=== PATIENT | female | born 1970 | race Caucasian/White ===

== ENCOUNTER 2016-09-15 19:16 | Inpatient (IN) | payer MEDICAID ==
[~2016-09-15] VITALS: Ht 160 cm; Wt 121.6 kg
[2016-09-15 19:16] VITALS: BP 172/79; PULSE 90; RESP 16; TEMP 99.1; O2SAT 94
[~2016-09-15 19:16] MED LIST: ALBMDI INH; ASPI325T2 PO; BENA20TA2 PO; BENZ100C67 PO; FERR-57 PO; GABA-531 PO; INSNLG7030 SUBCUT; SUCR1ORA2 PO
--- NOTE | 2016-09-15 19:20 | NUR ---
Patient to ER bed 7 to gown for evaluation. Side rails up. Report given to Annel LAM.
--- NOTE | 2016-09-15 19:30 | NUR ---
Patient brought to ER by S ambulance. Patient C/O 12/04 headache and "i cant move, my legs hurt" 09/03. Patient is homeless, states that she lives in her car and 1.5-2 months ago had a DVT and since then her legs swell up and she can't walk. Patient is soiled of urine and feces, bilateral lower extremities swelling and pitting edema +3 from thighs to toes. Entire body has multiple pin prick bites, patient states "from bed bugs" Patient is AAOx3, unlabored breathing, no acute distress.
--- NOTE | 2016-09-15 19:56 | NUR ---
Patient is incontinent of feces and urine. Patient cleaned, bedding, linnen changed, clean gown on.
--- NOTE | 2016-09-15 20:03 | NUR ---
ER MD Moctezuma at bedside for evaluation
--- NOTE | 2016-09-15 20:10 | NUR ---
Patient has bed bugs on person and crawling on belongings. Patient states "i have been dealing with this for a long time and can't get rid of them"
[2016-09-15 20:57] LABS: HEMATOCRIT 31.6 % (36-48); HEMOGLOBIN 10.3 g/dL (12.0-16.0); MEAN CORPUSCULAR HEMOGLOBIN 27 pg (27-31); MEAN CORPUSCULAR HGB CONC 33 % (32-36); MEAN CORPUSCULAR VOLUME 84 fL (79.0-98.0); PLATELET COUNT (AUTO) 371 K/uL (130-430); RED BLOOD CELL COUNT(AUTO) 3.78 MIL/uL (4.2-6.2); RED CELL DISTRIBUTION WIDTH 14.3 % (9.0-15.0); WHITE BLOOD COUNT (AUTO) 8.2 K/uL (4.8-10.8)
[2016-09-15 21:15] LABS: CALCIUM 8.1 mg/dL (8.4-11.0); CHLORIDE 105 mmol/L (98-107); CREATININE 1.13 mg/dL (0.55-1.30); GLUCOSE 150 mg/dL (70-99); SODIUM SERUM 139 mmol/L (136-145); UREA NITROGEN, BLOOD 17 mg/dL (8-21)
--- NOTE | 2016-09-15 21:15 | NUR ---
# 16 FR Escamilla catheter with use of sterile technique. Immediate return of 200 cc clowdy urine noted. Bedside drainage bag placed below level of bladder. Urine sample collected and sent to lab. Pt tolerated procedure well. Patient unable to toilet self.
[2016-09-15 21:20] LABS: ANION GAP < 3 (5-15); GFR AFRICAN AMERICAN 67 mL/min (>90); POTASSIUM 2.8 mmol/L (3.5-5.1)
[2016-09-15] MEDS ORDERED: POTASSIUM CHLORIDE 20 MEQ TAB.PRT.SR PO ONE (21:30)
[2016-09-15] MEDS ORDERED: KCL 20 mEq in 100 mL (PREMIX) 100 ML IV ONE (21:30)
[2016-09-15 21:31] LABS: INR 0.9 (0.8-1.2); PROTHROMBIN TIME 10.1 SECS (9.5-12.5)
[2016-09-15 21:36] LABS: ATYPICAL LYMPHOCYTES % 0 % (0-0); BAND % (MANUAL) 0 % (0-6); BASOPHILS % (MANUAL) 0 % (0-2); EOSINOPHILS % (MANUAL) 1 % (0-7); LYMPHOCYTES % (MANUAL) 14 % (20-46); MONOCYTES % (MANUAL) 3 % (0-11)
[2016-09-15] MEDS ORDERED: CLON0.3T PO (21:43)
[2016-09-15] MEDS ORDERED: PRED10TA PO (21:44)
[2016-09-15] MEDS ORDERED: FAMO20TA8 PO (21:45)
[2016-09-15] MEDS ORDERED: POTA10CA68 PO (21:45)
[2016-09-15] MEDS ORDERED: LOPE2CAP PO (21:46)
[2016-09-15] MEDS ORDERED: CIPR-172 PO (21:46)
[2016-09-15] MEDS ORDERED: FURO-149 PO (21:46)
[2016-09-15] MEDS ORDERED: VALS160T2 PO (21:47)
[2016-09-15] MEDS ORDERED: INSNLG7030 SUBCUT (21:48)
[2016-09-15] MEDS ORDERED: IPRA4AER INH (21:49)
--- NOTE | 2016-09-15 21:50 | NUR ---
Medication reconciliation completed with information provided by patient/med bottles. Any prior medication reconciliation on file was reviewed and corrected.
[2016-09-15 22:00] LABS: ALANINE AMINOTRANSFERASE 15 U/L (12-78); ASPARTATE AMINOTRANSFERASE 21 U/L (10-37); TOTAL BILIRUBIN 0.1 mg/dL (0.0-1.0)
[2016-09-15 22:01] LABS: ALBUMIN 1.2 g/dL (3.4-4.8); LIPASE 78 U/L (73-393); TOTAL PROTEIN, SERUM 5.2 g/dL (6.4-8.3)
--- NOTE | 2016-09-15 22:01 | NUR ---
Patients belongings (blue back pack and medications) placed in big belongings bag, double-bagged. and handed to security. Patient acknowledges and agrees.
[2016-09-15 22:41] LABS: BILIRUBIN,URINE NEGATIVE (NEGATIVE); BLOOD, URINE 2+ (NEGATIVE); CLARITY/URINE CLOUDY (CLEAR); COLOR,URINE YELLOW (YELLOW); GLUCOSE,URINE 2+ (NEGATIVE); KETONES,URINE NEGATIVE (NEGATIVE); LEUKOCYTE ESTERASE ,URINE NEGATIVE (NEGATIVE); NITRITE, URINE NEGATIVE (NEGATIVE); PROTEIN URINE 3+ (NEGATIVE); UROBILINOGEN,URINE 0.2 (0.2-1.0)
--- NOTE | 2016-09-15 22:43 | NUR ---
landscape technician at bedside with portable.
[2016-09-15] MEDS ORDERED: ENOXAPARIN SODIUM 100 MG/ML SYRINGE SUBCUT ONE (23:00)
--- NOTE | 2016-09-15 23:12 | NUR ---
ER MD Moctezuma aware of BP
--- NOTE | 2016-09-15 23:26 | NUR ---
Patient off the unit for CT scan via gurney
[2016-09-15] MEDS ORDERED: IOHEXOL 350 mgI/mL, 150 ML INFUS..BTL IV ONE (23:27)
[2016-09-15] MEDS ORDERED: hydrALAZINE HCL 20 MG/ML VIAL IVP ONE (23:30)
--- NOTE | 2016-09-15 23:37 | NUR ---
Patient will be admitted to care of DR CAMPO. Admitted to TELE IN unit. Will go to room 135. Belongings list completed. Summary report printed. Report will be given at bedside.
[2016-09-15 23:38] LABS: BACTERIA,URINE MANY /HPF (None Seen); WBC,URINE 50-80 /HPF (0-3)
[2016-09-15 23:39] LABS: MUCUS,URINE None Seen /LPF (None Seen); URINE AMORPHOUS URATE 3+ /HPF (None Seen)
[2016-09-15] MEDS ORDERED: HEPARIN 25,000 UNITS/D5W 250ML 250 ML IV ONE (23:45)
[2016-09-15] MEDS ORDERED: ALBUTEROL SULFATE 0.083% 2.5 MG/3 ML VIAL.NEB INH PRN (23:45)
[2016-09-15] MEDS ORDERED: IPRATROPIUM BROM 0.5 MG/2.5 ML VIAL.NEB (ATROVENT) INH PRN (23:45)
--- NOTE | 2016-09-15 23:45 | NUR ---
Transfer to TELE IN 135 via ACLS protocol. Licensed nurse present. IV present no signs or symptoms of infiltration.
[2016-09-15 23:59] VITALS: BP 157/85; PULSE 81
[2016-09-16] VITALS (7 sets, daily range): BP systolic 141–187; BP diastolic 65–87; PULSE 84–96; RESP 16–18; TEMP 96–98.8; O2SAT 94–97
--- NOTE | 2016-09-16 | NUR ---
ADMISSION NOTE Received patient from ER via [facility], received report from Annel LAM. Patient admitted with diagnosis of pneumonia. Patient oriented to hospital routine, call light, toileting and safety-patient verbalized understanding.
--- NOTE | 2016-09-16 00:05 | NUR ---
NOTES RECEIVED THE PT FROM THE ER ,PT A/A/OX4 REDNESS WITH 3 PLUS EDEMA AND SMALL RED FAUSTIN NOTED TO BOTH LEGS AND THIGHS.IV INTACT TO LT WRIST.PT WILL BE ON A HEPARIN DRIP.RN WAS NOTIFIED.PT ORIENTED TO ROOM AND CALL LIGHT.PICTURES TAKEN OF BUTTOCKS AND BOTH LEGS.WILL CONTINUE TO MONITOR.
--- NOTE | 2016-09-16 00:10 | NUR ---
CONSULTATION PAGED REASON FOR CONSULTATION:PNEUMONIA WAS CONSULT CALLED?Y PERSON WHO WAS NOTIFIED:GLORIA CONSULTING PHYSICIAN:GAGAN CARRANZA CLOSED CIRCUIT SCREEN WATCHER SPECIALTY:PULMONARY CLOSED CIRCUIT SCREEN WATCHER PHONE NUMBER:[phone]
[2016-09-16] MEDS ORDERED: HEPARIN SODIUM,PORCINE 3000 UNITS/0.6 ML BOLUS IVP PRN (00:30)
[2016-09-16] MEDS ORDERED: HEPARIN SODIUM,PORCINE 2000 UNITS/0.4 ML BOLUS IVP PRN (00:30)
[2016-09-16] MEDS ORDERED: HEPARIN 25,000 UNITS in 250 ML PREMIX IV PRN (00:30)
--- NOTE | 2016-09-16 01:33 | NUR ---
NOTES SANDWICH AND JUICE GIVEN PER REQUEST.
[2016-09-16] MEDS ORDERED: HEPARIN IV FLUSH 300 UNITS/3ML SYR INJ ONE (02:30)
[2016-09-16] MEDS ORDERED: HEPARIN SODIUM,PORCINE 5000 UNITS/ML VIAL IVP ONE (02:45)
--- NOTE | 2016-09-16 03:26 | NUR ---
NOTES PT RESTING WITH NO COMPLAINTS,HEPARIN DRIP STARTED BY THE RN AT 14 CC/HR.WILL CONTINUE TO MONITOR.
[2016-09-16] MEDS: ALBUTEROL SULFATE 0.083% 2.5 MG/3 ML VIAL.NEB INH SCH ×6 (03:59→23:33)
[2016-09-16] MEDS: IPRATROPIUM BROM 0.5 MG/2.5 ML VIAL.NEB (ATROVENT) INH SCH ×5 (04:00→23:33)
--- NOTE | 2016-09-16 05:26 | NUR ---
NOTES PT SLEEPING,NO DISTRESS NOTED.CALL LIGHT WITHIN REACH.CONTINUE TO MONITOR.
[2016-09-16] MEDS: INSULIN REGULAR, HUMAN 100 UNITS/ML, 10 ML VIAL (novoLIN R) SUBCUT PRN ×4 (06:28→21:57)
--- NOTE | 2016-09-16 06:33 | NUR ---
CLOSING NOTES ACCUCHECK WAS 169.INSULIN GIVEN PER S/S.WILL ENDORSE THE CARE OF THE PT TO THE DAY NURSE.
--- NOTE | 2016-09-16 07:56 | NUR ---
Nutrition Update Raimundo Scale 13 noted. Pt admitted for pneumonia. Diet: [facility] BMI: 47.8 kg/m2 RD to follow per nutrition care standards.
--- NOTE | 2016-09-16 08:00 | NUR ---
initial notes rec patient awake alert just finished eating breakfast hob elevated. ivf of heparin at 1400 units/ hr infusin well. no infiltration oted. noted with multiple red spots all over her legs and hips area. pt is obese. no sob noted. resp easy and unlabored. bed in low position and side rails up and locked. call light within reached and knows when to call for assistance.
[2016-09-16 08:19] LABS: BASOPHILS # (AUTO) 0.1 K/uL (0.0-0.2); BASOPHILS % (AUTO) 0.7 % (0.0-2.0); EOSINOPHILS # (AUTO) 0.2 K/uL (0.0-0.4); HEMATOCRIT 33.7 % (36-48); HEMOGLOBIN 10.6 g/dL (12.0-16.0); LYMPHOCYTES # (AUTO) 2.5 K/uL (1.0-5.5); LYMPHOCYTES % (AUTO) 30.1 % (20.5-51.5); MEAN CORPUSCULAR HEMOGLOBIN 26 pg (27-31); MEAN CORPUSCULAR HGB CONC 31 % (32-36); MEAN CORPUSCULAR VOLUME 84 fL (79.0-98.0); MONOCYTES # (AUTO) 0.3 K/uL (0.0-1.0); MONOCYTES % (AUTO) 3.4 % (1.7-9.3); NEUTROPHILS # (AUTO) 5.3 K/uL (1.8-7.7); NEUTROPHILS % (AUTO) 63.8 % (40.0-70.0); PLATELET COUNT (AUTO) 409 K/uL (130-430); RED BLOOD CELL COUNT(AUTO) 4.02 MIL/uL (4.2-6.2); RED CELL DISTRIBUTION WIDTH 14.7 % (9.0-15.0); WHITE BLOOD COUNT (AUTO) 8.4 K/uL (4.8-10.8)
--- NOTE | 2016-09-16 08:23 | NUR ---
CONSULTS CONSULT #1 PULMONARY CONSULT Spoke with Angela regarding request for consultation with Dr. Ch ([phone]) for reason: COPD. CONSULT #2 HEMATOLOGY CONSULT Spoke with Isabel regarding request for consultation with Dr. Huffman ([phone]) for reason: DVT.
[2016-09-16 08:28] LABS: ANION GAP < 3 (5-15); CHLORIDE 108 mmol/L (98-107); GLUCOSE 121 mg/dL (70-99); POTASSIUM 3.3 mmol/L (3.5-5.1); SODIUM SERUM 141 mmol/L (136-145); UREA NITROGEN, BLOOD 16 mg/dL (8-21)
[2016-09-16 08:29] LABS: CREATININE 1.12 mg/dL (0.55-1.30); GFR AFRICAN AMERICAN 67 mL/min (>90)
[2016-09-16 08:47] LABS: ALANINE AMINOTRANSFERASE 13 U/L (12-78); ALBUMIN 1.1 g/dL (3.4-4.8); ASPARTATE AMINOTRANSFERASE 20 U/L (10-37); TOTAL BILIRUBIN 0.1 mg/dL (0.0-1.0)
[2016-09-16] MEDS ORDERED: POTASSIUM CHLORIDE 20 MEQ TAB.PRT.SR PO ONE (10:45)
--- NOTE | 2016-09-16 10:59 | NUR ---
rounds wet mount was collected and sent to lab. seen by dr lorenzo at bedside and with orders.
[2016-09-16] MEDS ORDERED: FUROSEMIDE 40 MG/4 ML VIAL IVP ONE (11:15)
[2016-09-16] MEDS ORDERED: PREDNISONE 5 MG TABLET PO ONE (11:15)
--- NOTE | 2016-09-16 12:30 | NUR ---
rounds accucheck was done and no hypo hyperglycemic reaction noted. no sob noted.
--- NOTE | 2016-09-16 14:00 | NUR ---
rounds pt use the commode and had a bowel movement. assisted patient back in bed and maida well.
--- NOTE | 2016-09-16 16:00 | NUR ---
1600 V/S PT BP IS HIGH PT BP IS 187/87. GENARO GONCALVES IS NOTIFIED AND AWARE.
--- NOTE | 2016-09-16 17:15 | NUR ---
WOUND EVALUATION: Wound Consult received from Dr. Tiwari. Thank you, Dr. Tiwari, for the consult. Patient received in a Lawrence Bed with a mattress, awake, alert, and oriented. Patient is unable to turn independently. Raimundo Score is a 13. Past Medical History: COPD, Diabetes Mellitus, Hypertension, history of DVT, Anemia, homeless, Bronchitis, . Recent Labs: WBC 8.4, RBC 4.02, hemoglobin 10.6, hematocrit 33.7, potassium 3.3, chloride 108, BUN 16, creatinine 1.12, GFR 56, glucose 121, calcium 8.0, albumin 1.1, d-dimer 2110, PTT 52.1. Intrinsic factors that delay wound healing: COPD, Diabetes Mellitus, Anemia, Bronchitis. Extrinsic factors that delay wound healing: Decreased mobility. Microbiology: Blood culture 2, urine culture, and MRSA screen results in progress. Scabies wet mount results negative. Venous Doppler right lower extremity negative for deep vein thrombosis. CT Chest negative for pulmonary embolism. Wound Assessment: 1) Right Lower Extremity: Severe edema with hemosiderin staining and multiple areas of discoloration, present on admission. No odor, no drainage. No visible wounds. No drainage noted on bed or chucks. 2) Left Lower Extremity: Severe edema with hemosiderin staining and multiple areas of discoloration, present on admission. No odor, no drainage. No visible wounds. No drainage noted on bed or chucks. 3) Trunk and General Body: Generalized rash throughout body, present on admission. No odor, no drainage. Recommend: No dressings needed. Continue to monitor sides for worsening condition. Contact wound care nurse if weeping begins or wounds develop. For weeping of lower extremities, recommend: Cleanse lower extremities with normal saline. Pat dry. Place sure prep onto rula-wounds. Cover with oil emulsion dressings, then non-adherent pads. Wrapped loosely with Kika wrap. Perform wound care daily, and as needed for dressing soiling or dislodgement. Also recommend: Reposition patient every 2 hours with pillow support and off-load pressure areas with pillows for pressure re-distribution. Offload, elevate and float bilateral heels with pillows. Perform skin care and monitor skin integrity Q shift. Use moisture barrier cream on buttocks and other moisture susceptible areas QID and as needed for soiling. Place patient on low air-loss therapy.
--- NOTE | 2016-09-16 18:25 | NUR ---
closing notes 24 hour urine collection started at 1030 this am. heparin was d/cd at 1400. no bleeding noted. denies pain at this time. bed in low position and call light within reached.stable and needs attended.
--- NOTE | 2016-09-16 19:30 | NUR ---
notes received the pt from the day nurse.pt a/a/ox4 no c/o pain or discomfort. 24 hour urine in progress,iv intact to lt wrist,no redness or swelling noted.assisted up to the commode and had a bm.call light within reach safety measures in progress.continue to monitor.
--- NOTE | 2016-09-16 21:30 | NUR ---
notes pt watching tv with no complaints.call light within reach.accucheck was 194,insulin given per s/s.continue to monitor.
--- NOTE | 2016-09-16 23:35 | NUR ---
notes pt resting with no complaints.continue to monitor.
--- NOTE | 2016-09-16 23:54 | NUR ---
notes med.neb. treatment given by respiratory therapist.,call placed to dr mike bp is 190/85.
--- NOTE | 2016-09-17 00:06 | NUR ---
notes dr mike called back,new orders taken.
[2016-09-17 00:11] VITALS: BP 190/85; PULSE 99; RESP 20; TEMP 98.5; O2SAT 92
[2016-09-17] MEDS: cloNIDine HCL 0.1 MG TABLET PO PRN ×2 (00:26→17:23)
--- NOTE | 2016-09-17 01:30 | NUR ---
notes pt sleeping,no distress noted.call light within reach.continue to monitor.
[2016-09-17] MEDS: IPRATROPIUM BROM 0.5 MG/2.5 ML VIAL.NEB (ATROVENT) INH SCH ×6 (03:00→23:00)
[2016-09-17] MEDS: ALBUTEROL SULFATE 0.083% 2.5 MG/3 ML VIAL.NEB INH SCH ×6 (03:00→23:00)
--- NOTE | 2016-09-17 03:24 | NUR ---
notes pt sleeping.no distress noted.
--- NOTE | 2016-09-17 06:07 | NUR ---
closing notes pt resting with no complaints.will endorse the care of the pt to the day nurse.
--- NOTE | 2016-09-17 07:20 | NUR ---
AM ROUNDSLATE ENTRY DUE TO PT CARE PT A/Ox4, DENIES PAIN AT THIS TIME...HL TO LW FLUSHES WELL...BLE 3+ PITTING EDEMA WITH RASH THROUGH OUT LEGS AND FOX-AREA...PT USING BSC..FC DRAINING WELL, URINE BEING COLLECTED FOR 24*URINE TEST...CALL LIGHT/PHONE W/INR EACH...WILL CONT TO MONITR
[2016-09-17] MEDS: FUROSEMIDE 40 MG/4 ML VIAL IVP SCH (09:24)
[2016-09-17] MEDS: PREDNISONE 5 MG TABLET PO SCH (10:41)
[2016-09-17] MEDS: ENOXAPARIN SODIUM 40 MG/0.4 ML SYRINGE SUBCUT SCH (10:41)
[2016-09-17 11:24] LABS: CALCIUM 7.9 mg/dL (8.4-11.0); CREATININE 1.14 mg/dL (0.55-1.30); POTASSIUM 3.5 mmol/L (3.5-5.1)
--- NOTE | 2016-09-17 12:00 | NUR ---
LATE ENTRY DUE TO PT CARE PT STABLE...NO CHANGES...SITTING UP IN BED USING HER CELLPHONE..WILL CONT TO MONITOR
[2016-09-17 12:15] VITALS: BP 179/79; PULSE 86; RESP 16; TEMP 98.2; O2SAT 98
[2016-09-17] MEDS: INSULIN REGULAR, HUMAN 100 UNITS/ML, 10 ML VIAL (novoLIN R) SUBCUT PRN ×3 (12:42→22:03)
--- NOTE | 2016-09-17 14:45 | NUR ---
ROUNDS PT STABLE..RESTING...DENIES PAIN...WILL CONT TO MONITOR
[2016-09-17 16:38] VITALS: BP 196/100; PULSE 89; RESP 16; TEMP 98.4; O2SAT 96
--- NOTE | 2016-09-17 17:28 | NUR ---
ELEVATED BP 196/100..CLONIDINE GIVEN..WILL RE-CHECK BP AFTER ONE HOUR PT COMFORTABLE...SITTING UP AT EDGE OF BED USING PHONE
--- NOTE | 2016-09-17 18:45 | NUR ---
ROUNDS PT STABLE..NO CHANGES...ALL NEEDS MET...WILL CONT TO MONITOR
[2016-09-17 18:51] LABS: CREATININE 1.1 mg/dL (0.55-1.30)
[2016-09-17 18:56] LABS: CREATININE,URINE 19.2 MG/DL (30-125)
[2016-09-17 18:57] LABS: CREATININE CLEARANCE,URINE 28.6 ml/min (80-120)
[2016-09-17 19:30] VITALS: BP 185/93; PULSE 94; RESP 18; TEMP 98.3; O2SAT 93
--- NOTE | 2016-09-17 20:00 | NUR ---
initial note pt. received sitting up in bed. no s/s of sob or distress noted. pt. blood pressure is elevated to 185/93, clonodine was given by the day nurse. will cont. to monitor. per the pt., her blood pressure always runs high. all other vital signs stable. pt. denies pain at this time. iv access to left wrist #20, saline lock, flushes well. no infiltration noted. bilateral lower extremity edema noted along with rashes and rashes on the bottom as well. leroy catheter draining to gravity with clear yellow output noted. plan of care has been discussed with the pt. verbalizes understanding. will cont. to monitor for any changes. safety, fall and contact precautions in place. call light in reach.
[2016-09-17] MEDS: LEVOFLOXACIN 500 MG/D5W 100 ML IV SCH (22:01)
--- NOTE | 2016-09-17 22:10 | NUR ---
rounds pt. resting in bed at this time watching television. iv abx infusing well as ordered with no adverse reactions noted. blood sugar was checked, 4 units of regular insulin were given per sliding scale for blood sugar of 219. bilateral lower extremeties were cleansed with normal saline. z guard was applied. will cont. to monitor the pt. for any changes. encouraged pt. to call for any assistance. call light in reach, bed in lowest locked position.
--- NOTE | 2016-09-17 22:30 | NUR ---
rounds pt. resting in bed quietly. norco was given prn for pain 6/10 in lower back. restoril was given for sleep. pt. iv is patent, flushed with normal saline and solumedrol was given as ordered. encouraged the pt. to call for assistance. will cont. to monitor for any changes. safety and fall precautions in place. call light in reach. Addendum: 09/18/16 at 0106 by Elidia Murguia RN wrong pt. please disregard.
[2016-09-17 23:47] VITALS: BP 198/89; PULSE 94; RESP 18; TEMP 97.9; O2SAT 94
--- NOTE | 2016-09-18 00:30 | NUR ---
rounds pt. resting in bed at this time with eyes closed. blood pressure continues to be elevated. will administer another prn dose of bp medication. safety and fall precautions in place. call light in reach.
[2016-09-18] MEDS: cloNIDine HCL 0.1 MG TABLET PO PRN ×2 (00:55→16:51)
--- NOTE | 2016-09-18 02:33 | NUR ---
rounds pt. resting in bed with eyes closed. chest rise and fall noted. no s/s of sob or distress noted. no facial grimacing indicating pain. will cont. to monitor for changes. safety and fall precautions in place. call light in reach.
[2016-09-18] MEDS: ALBUTEROL SULFATE 0.083% 2.5 MG/3 ML VIAL.NEB INH SCH ×6 (03:00→23:52)
[2016-09-18] MEDS: IPRATROPIUM BROM 0.5 MG/2.5 ML VIAL.NEB (ATROVENT) INH SCH ×6 (03:00→23:52)
[2016-09-18 04:25] VITALS: BP 163/90; PULSE 82; RESP 18; TEMP 98.3; O2SAT 95
--- NOTE | 2016-09-18 06:22 | NUR ---
CLOSING NOTES PT. RESTING IN BED QUIETLY AT THIS TIME. NO S/S OF SOB OR DISTRESS. PT. DENIES PAIN AT THIS TIME. MORNING ACCU CHECK DONE, PT. BLOOD SUGAR IS 110. NO INSULIN COVERAGE NEEDED PER SLIDING SCALE. ALL NECESSARY NEEDS WERE MET THROUGHOUT THE SHIFT. SAFETY AND FALL PRECAUTIONS WERE MAINTAINED. WILL ENDORSE CARE TO AM NURSE. CALL LIGHT IN REACH.
[2016-09-18 07:14] LABS: CALCIUM 7.8 mg/dL (8.4-11.0); CHLORIDE 110 mmol/L (98-107); CREATININE 1.16 mg/dL (0.55-1.30); GLUCOSE 109 mg/dL (70-99); POTASSIUM 3.9 mmol/L (3.5-5.1); SODIUM SERUM 144 mmol/L (136-145); UREA NITROGEN, BLOOD 16 mg/dL (8-21)
[2016-09-18 07:39] LABS: ANION GAP < 3 (5-15); GFR AFRICAN AMERICAN 65 mL/min (>90)
[2016-09-18 08:00] VITALS: BP 157/77; PULSE 89; RESP 18; TEMP 97.8; O2SAT 98
--- NOTE | 2016-09-18 08:00 | NUR ---
RN Opening note patient lying on bed, denies pain or discomfort. patient vital signs was obtained and patient will be given her med at 900 AM will follow up
[2016-09-18] MEDS: FUROSEMIDE 40 MG/4 ML VIAL IVP SCH (09:16)
[2016-09-18] MEDS: ENOXAPARIN SODIUM 40 MG/0.4 ML SYRINGE SUBCUT SCH (09:17)
[2016-09-18] MEDS: PREDNISONE 5 MG TABLET PO SCH (09:17)
--- NOTE | 2016-09-18 10:28 | NUR ---
Social Service Note: Pt referred to medical social consultant by physician and nursing due to pt being homeless. REINFORCER met with pt at bedside to complete DC plan assessment and psychosocial assessment. Pt was provided with homeless assistance resources, [facility], food [place], transportation resources, and [facility] information. Pt states that she and her have been homeless for over 14 years; pt states that they primarily lived in hotels/motels up until 4 years ago. Pt states that for the last 4 years they have been living in their car. Pt states that she and her have a 10 year old son who lives with pt's in-laws who care for him. Please see assessments for more information. REINFORCER will remain available for support and will follow up as needed.
[2016-09-18 11:39] VITALS: Ht 160 cm; Wt 121.6 kg
[2016-09-18 12:48] VITALS: BP 158/79; PULSE 87; RESP 16; TEMP 97.4; O2SAT 96
[2016-09-18] MEDS: INSULIN REGULAR, HUMAN 100 UNITS/ML, 10 ML VIAL (novoLIN R) SUBCUT PRN ×3 (12:55→22:25)
--- NOTE | 2016-09-18 14:22 | NUR ---
REASON FOR CONSULTATION:PROTEINURIA WAS CONSULT CALLED?Y PERSON WHO WAS NOTIFIED:PAIGE CONSULTING PHYSICIAN:DR. BAZZI NURSE CARE MANAGER SPECIALTY:NEPHRO NURSE CARE MANAGER PHONE NUMBER:[phone]
--- NOTE | 2016-09-18 16:45 | NUR ---
WOUND RE-EVALUATION: Patient received in a Offerman Bed with a mattress with low air-loss therapy, awake, alert, and oriented. Patient is able to turn in bed with minimal assist. Raimundo Score is a 17. Intrinsic factors that delay wound healing: COPD, Diabetes Mellitus, Anemia, Bronchitis. Extrinsic factors that delay wound healing: Decreased mobility. Microbiology: Blood culture 2, and urine culture results in progress. MRSA screen positive. Wound Assessment: 1) Right Lower Extremity: Severe edema with hemosiderin staining and multiple areas of discoloration, present on admission. No odor, no drainage. No visible wounds. No drainage noted on bed or chucks. 2) Left Lower Extremity: Severe edema with hemosiderin staining and multiple areas of discoloration, present on admission. No odor, no drainage. No visible wounds. No drainage noted on bed or chucks. 3) Trunk and General Body: Generalized rash throughout body, present on admission. No odor, no drainage. Recommend continue: No dressings needed. Continue to monitor sides for worsening condition. Contact wound care nurse if weeping begins or wounds develop. Put Hydraguard cream onto bilateral feet and any dry areas of bilateral lower extremities BID. If weeping of lower extremities present, recommend: Cleanse lower extremities with normal saline. Pat dry. Place sure prep onto rual-wounds. Cover with oil emulsion dressings, then non-adherent pads. Wrapped loosely with Kika wrap. Perform wound care daily, and as needed for dressing soiling or dislodgement. Also recommend continue: Reposition patient every 2 hours with pillow support and off-load pressure areas with pillows for pressure re-distribution. Offload, elevate and float bilateral heels with pillows. Perform skin care and monitor skin integrity Q shift. Use moisture barrier cream on buttocks and other moisture susceptible areas QID and as needed for soiling. Maintain patient on low air-loss therapy.
--- NOTE | 2016-09-18 16:51 | NUR ---
RN Rounds patient blood pressure found to be high, Dr. Tiwari was contacted and an order of clonidine was given, will follow up on patient blood pressure, patient is asymptomatic.
[2016-09-18 16:52] VITALS: BP 211/116; PULSE 90; RESP 18; TEMP 98.6; O2SAT 96
[2016-09-18 18:00] VITALS: BP 179/79; PULSE 89; RESP 18; TEMP 98; O2SAT 92
--- NOTE | 2016-09-18 18:00 | NUR ---
RN Closing note patient lying on bed, blood pressure was measured and came down to 179/79 down from 211/124. will continue to monitor, patient is asymptomatic and Dr. Zhang prescribed and ARB for the patient, scheduled at 2100, talked to the charge nurse to give it early, but said no need. will follow up
--- NOTE | 2016-09-18 20:00 | NUR ---
INITIAL NOTES: PT A/A/OX4; SELWYN LOWER LEG NOTED WITH REDNESS WITH EDEMA AND MULTIPLE SCABS/ RASHES NOTED TO BOTH LEGS AND THIGHS.IV INTACT TO LT WRIST.ASSESSMENT DONE; CALL JACQUES IN REACH ;FALL PRECAUTION AND SAFETY MEASURES IN PLACE ;WILL CONTINUE TO MONITOR.
[2016-09-18] MEDS: LOSARTAN POTASSIUM 50 MG TABLET (COZAAR) PO SCH (22:21)
[2016-09-18] MEDS: LEVOFLOXACIN 500 MG/D5W 100 ML IV SCH (22:23)
--- NOTE | 2016-09-18 22:25 | NUR ---
MEDICATION : DUE MEDS GIVEN PER ORDER . WILL MONITOR THE BP .
[2016-09-19] VITALS (7 sets, daily range): BP systolic 138–189; BP diastolic 80–91; PULSE 83–89; RESP 16–22; TEMP 97.3–97.8; O2SAT 93–100
[2016-09-19] MEDS: cloNIDine HCL 0.1 MG TABLET PO PRN ×2 (00:13→15:20)
--- NOTE | 2016-09-19 00:13 | NUR ---
BP : BP IS STILL HIGH , 190/98. MEDICATED WITH CLONIDINE PER ORDER .
--- NOTE | 2016-09-19 02:00 | NUR ---
RN NOTES: PT IS COMFORTABLE ; SLEEPING , NOT IN ANY ACUTE DISTRESS;BP IS STILL 168/ 84; WILL CONTINUE TO MONITOR.
[2016-09-19] MEDS: ALBUTEROL SULFATE 0.083% 2.5 MG/3 ML VIAL.NEB INH SCH ×4 (03:37→16:50)
[2016-09-19] MEDS: IPRATROPIUM BROM 0.5 MG/2.5 ML VIAL.NEB (ATROVENT) INH SCH ×4 (03:37→16:50)
--- NOTE | 2016-09-19 04:04 | NUR ---
RN NOTES: CORPORATE TRAVEL COORDINATOR CALLED AND STATED THAT PTS BP IS HIGH , MEDICATION WILL BE DUE IN FEW MINUTES . WILL CONTINUE TO MONITOR.
--- NOTE | 2016-09-19 06:15 | NUR ---
RN NOTES: PT IS SLEEPING, NOT IN ANY ACUTE DISTRESS; BS 133 , NO INSULIN COVERAGE NEEDED .BP 147/ 80 . WILL CONTINUE TO MONITOR PT .
--- NOTE | 2016-09-19 06:55 | NUR ---
CLOSING NOTES: PT IS COMFORTABLE , SLEEPING , NOT IN ANY ACUTE DISTRESS; WILL CONTINUE TO MONITOR AND WILL ENDORSE TO NEXT SHIFT NURSE.
[2016-09-19 07:33] LABS: CALCIUM 7.7 mg/dL (8.4-11.0); CHLORIDE 108 mmol/L (98-107); CREATININE 1.21 mg/dL (0.55-1.30); GLUCOSE 137 mg/dL (70-99); POTASSIUM 3.6 mmol/L (3.5-5.1); SODIUM SERUM 141 mmol/L (136-145); UREA NITROGEN, BLOOD 18 mg/dL (8-21)
--- NOTE | 2016-09-19 08:00 | NUR ---
Patient is resting in bed, no signs of distress noted. V/S checked. Instructed to use call lights, which is in place, for needs, bed locked at lowest position, will continue to monitor.
[2016-09-19 08:19] LABS: ANION GAP < 3 (5-15); GFR AFRICAN AMERICAN 62 mL/min (>90)
[2016-09-19] MEDS: PREDNISONE 5 MG TABLET PO SCH (08:39)
[2016-09-19] MEDS: FUROSEMIDE 40 MG/4 ML VIAL IVP SCH (08:39)
[2016-09-19] MEDS: LOSARTAN POTASSIUM 50 MG TABLET (COZAAR) PO SCH (08:39)
--- NOTE | 2016-09-19 10:20 | NUR ---
Patient has a BM, no signs of distress noted.
[2016-09-19] MEDS: INSULIN REGULAR, HUMAN 100 UNITS/ML, 10 ML VIAL (novoLIN R) SUBCUT PRN ×2 (11:40→18:32)
--- NOTE | 2016-09-19 12:00 | NUR ---
PATIENT BLOOD SUGAR IS 230. 4 UNITS OF RI IS GIVEN SUBCUT. NO SIGNS OF DISTRESS NOTED.
--- NOTE | 2016-09-19 12:00 | NUR ---
Patient is discharged by Dr. Tiwari without rn social services.
--- NOTE | 2016-09-19 14:12 | NUR ---
PATIENT IS RESTING IN BED, NO SIGNS OF DISTRESS NOTED.
--- NOTE | 2016-09-19 15:37 | NUR ---
Patient's BP 177/92. Clonidine 0.1 mg PO is given. Will reassess.
--- NOTE | 2016-09-19 17:35 | NUR ---
Patient BP at 187/92. Dr. Tiwari is notified, and orders patient can be discharged after 0.1mg Clonidine PO. Will carry out.
[2016-09-19] MEDS ORDERED: cloNIDine HCL 0.1 MG TABLET PO ONE (17:45)
--- NOTE | 2016-09-19 19:30 | NUR ---
D/C Patient Patient given medication reconciliation form and D/C instructions. Exit Care provided. Patient verbalized understanding. MD discussed with patient the results and treatment provided. Ambulatory with steady gait for discharge to home. Patient in stable condition, ID band removed. IV catheter removed, intact and dressing applied, no active bleeding. Rx of Cozaar, Lasix, Albuterol, and Levaquin is given. Patient educated on pain management. All belongings sent with patient.
--- NOTE | 2016-09-26 11:47 | NUR ---
Discharge Follow Up Phone Calls: Brokerage Clerk called and attempted to speak with pt ([phone]) on 09/24/16, 09/25/16, and 09/26/16; pt's phone states "the person you tried to reach is unavailable right now." Brokerage Clerk unable to follow up with pt at this time.
== END 2016-09-19 19:30 | disposition home or self-care (01) | DRG 140 ==
LOC: SED 19:16 → STU 22:38 → MERGE 22:38 → STU 23:44 → SMU 09-16 16:18
PROVIDERS: ADMIT Internal Medicine Hospice and Palliative Medicine; ATTEND Internal Medicine Hospice and Palliative Medicine
DX: J44.0 Chronic obstructive pulmonary disease with (acute) lower respiratory infection (principal); J18.9 Pneumonia, unspecified organism; E11.21 Type 2 diabetes mellitus with diabetic nephropathy; J90 Pleural effusion, not elsewhere classified; E88.09 Other disorders of plasma-protein metabolism, not elsewhere classified; L03.116 Cellulitis of left lower limb; E66.01 Morbid (severe) obesity due to excess calories; R60.1 Generalized edema; E87.6 Hypokalemia; R80.9 Proteinuria, unspecified; R62.7 Adult failure to thrive; J98.11 Atelectasis; D64.9 Anemia, unspecified; I10 Essential (primary) hypertension; F17.210 Nicotine dependence, cigarettes, uncomplicated; Z86.718 Personal history of other venous thrombosis and embolism; Z59.0 Homelessness; Z98.891 History of uterine scar from previous surgery; Z79.899 Other long term (current) drug therapy; Z83.3 Family history of diabetes mellitus; Z80.1 Family history of malignant neoplasm of trachea, bronchus and lung; J40 Bronchitis, not specified as acute or chronic
CPT/HCPCS: 36415; 71010; 71275; 80048; 80053; 81000-TC; 82575-TC; 82962; 83605; 83690-TC; 84156; 85007; 85025; 85027; 85379; 85610-TC; 85730-TC; 87040-TC; 87081; 87086; 87186-TC; 87210-TC; 93005; 93306; 93970; 94640; 94760; 96365; 96368; 96372; 96375; 99285; J0360; J1644; J1650; J1815; J1940; J1956; J3480; J7050; J7512; Q9967

== ENCOUNTER 2017-10-09 15:19 | Inpatient (IN) | payer MEDICAID ==
[~2017-10-09] VITALS: Ht 160 cm; Wt 84.8 kg
[~2017-10-09 15:19] MED LIST changes: -ALBMDI INH; +ASPI-1063 PO; -ASPI325T2 PO; -BENA20TA2 PO; -BENZ100C67 PO; +CARV25TA55 PO; +CEPH-568 PO; +CLON0.3T PO; +CYAN100T PO; +FAMO20TA8 PO; -FERR-57 PO; +FURO-149 PO; -GABA-531 PO; -INSNLG7030 SUBCUT; +LEVO25TA7 PO; +NIFE90TA24 PO; -SUCR1ORA2 PO; +SUCR1TAB78 PO
[2017-10-09 15:40] VITALS: BP_SYST 207
[2017-10-09] MEDS ORDERED: MAG-AL HYDROX/SIMETH 30 ML UDC PO ONE (16:15)
[2017-10-09] MEDS ORDERED: BELLADONNA ALKALOIDS/PHENOBARB 5 ML UDC PO ONE (16:15)
[2017-10-09] MEDS ORDERED: ONDANSETRON HCL 4 MG/2 ML VIAL IM ONE (16:15)
[2017-10-09] MEDS ORDERED: LIDOCAINE VISCOUS 2%, 15 ML UDC MM ONE (16:15)
[2017-10-09 17:44] LABS: BASOPHILS # (AUTO) 0.1 K/uL (0.0-0.2); BASOPHILS % (AUTO) 1.1 % (0.0-2.0); EOSINOPHILS # (AUTO) 0.2 K/uL (0.0-0.4); EOSINOPHILS % (AUTO) 1.9 % (0.0-4.0); HEMOGLOBIN 7.2 g/dL (12.0-16.0); LYMPHOCYTES # (AUTO) 2.6 K/uL (1.0-5.5); LYMPHOCYTES % (AUTO) 32.7 % (20.5-51.5); MEAN CORPUSCULAR HEMOGLOBIN 28 pg (27-31); MEAN CORPUSCULAR HGB CONC 34 % (32-36); MEAN CORPUSCULAR VOLUME 83 fL (79.0-98.0); MONOCYTES # (AUTO) 0.4 K/uL (0.0-1.0); MONOCYTES % (AUTO) 4.9 % (1.7-9.3); NEUTROPHILS # (AUTO) 4.6 K/uL (1.8-7.7); NEUTROPHILS % (AUTO) 59.4 % (40.0-70.0); PLATELET COUNT (AUTO) 448 K/uL (130-430); RED BLOOD CELL COUNT(AUTO) 2.61 MIL/uL (4.2-6.2); RED CELL DISTRIBUTION WIDTH 14.3 % (9.0-15.0); WHITE BLOOD COUNT (AUTO) 7.9 K/uL (4.8-10.8)
[2017-10-09 17:50] LABS: HEMATOCRIT 21.5 % (36-48)
[2017-10-09] MEDS ORDERED: NACL 0.9% 1,000 ML IV ONE (18:00)
[2017-10-09 18:08] LABS: CREATININE 2.68 mg/dL (0.55-1.30); POTASSIUM 4.8 mmol/L (3.5-5.1)
[2017-10-09 18:13] LABS: PROTHROMBIN TIME 10.2 SECS (9.5-12.5)
[2017-10-09] MEDS ORDERED: hydrALAZINE HCL 20 MG/ML VIAL IVP ONE (18:15)
[2017-10-09 18:17] LABS: ALBUMIN 2.4 g/dL (3.4-4.8); TOTAL BILIRUBIN 0.1 mg/dL (0.0-1.0)
[2017-10-09] MEDS ORDERED: FUROSEMIDE 40 MG/4 ML VIAL IVP ONE (18:45)
[2017-10-09] MEDS ORDERED: NITROGLYCERIN 1 INCH (GM) OINT. TP ONE (18:45)
[2017-10-09 19:19] VITALS: BP_SYST 171
[2017-10-09] MEDS ORDERED: MORPHINE 2 MG/ML INJ. SYRINGE IVP PRN ×2 (20:15)
[2017-10-09] MEDS ORDERED: MAGNESIUM SULFATE 50 ML IV PRN (20:15)
[2017-10-09] MEDS ORDERED: DOCUSATE SODIUM 100 MG CAPSULE PO PRN (20:15)
[2017-10-09] MEDS ORDERED: ACETAMINOPHEN 325 MG TABLET PO PRN (20:15)
[2017-10-09] MEDS ORDERED: MUPIROCIN 2% TOPICAL OINTMENT 22 GM NS PRN (20:15)
[2017-10-09] MEDS ORDERED: LORazepam 2 MG/ML VIAL IVP PRN (20:15)
[2017-10-09] MEDS ORDERED: ONDANSETRON HCL 4 MG/2 ML VIAL IVP PRN (20:15)
[2017-10-09] MEDS ORDERED: POTASSIUM CHLORIDE 20 MEQ TAB.PRT.SR PO PRN (20:15)
[2017-10-09] MEDS ORDERED: ZOLPIDEM TARTRATE 5 MG TABLET PO PRN (20:15)
[2017-10-09] MEDS ORDERED: IPRATROPIUM/ALBUTEROL SULFATE 3 ML AMPUL.NEB INH PRN (20:15)
[2017-10-09] MEDS ORDERED: cloNIDine HCL 0.2 MG TABLET PO PRN (20:15)
[2017-10-09] MEDS: CARVEDILOL 25 MG TABLET (COREG) PO SCH ×2 (21:00→21:22)
[2017-10-09 21:05] VITALS: BP_SYST 165
[2017-10-09] MEDS: FAMOTIDINE 20 MG TABLET PO SCH (21:22)
[2017-10-09] MEDS: SUCRALFATE 1 GM TABLET PO SCH (21:22)
[2017-10-09] MEDS: HEPARIN SODIUM,PORCINE 5000 UNITS/ML VIAL SUBCUT SCH (21:27)
[2017-10-09] MEDS: cloNIDine HCL 0.2 MG TABLET PO PRN (21:30)
[2017-10-09] MEDS: NACL 0.9% 1,000 ML IV SCH (21:36)
[2017-10-09 23:25] VITALS: BP_SYST 119
[2017-10-10] MEDS: cloNIDine HCL 0.2 MG TABLET PO PRN ×2 (05:43→17:30)
[2017-10-10 06:25] VITALS: BP_SYST 164
[2017-10-10 08:06] LABS: BASOPHILS # (AUTO) 0.1 K/uL (0.0-0.2); BASOPHILS % (AUTO) 0.9 % (0.0-2.0); EOSINOPHILS # (AUTO) 0.1 K/uL (0.0-0.4); EOSINOPHILS % (AUTO) 1.3 % (0.0-4.0); HEMOGLOBIN 8.5 g/dL (12.0-16.0); LYMPHOCYTES # (AUTO) 2.2 K/uL (1.0-5.5); LYMPHOCYTES % (AUTO) 31.1 % (20.5-51.5); MEAN CORPUSCULAR HEMOGLOBIN 27 pg (27-31); MEAN CORPUSCULAR HGB CONC 34 % (32-36); MEAN CORPUSCULAR VOLUME 80 fL (79.0-98.0); MONOCYTES # (AUTO) 0.4 K/uL (0.0-1.0); MONOCYTES % (AUTO) 5.4 % (1.7-9.3); NEUTROPHILS # (AUTO) 4.2 K/uL (1.8-7.7); NEUTROPHILS % (AUTO) 61.3 % (40.0-70.0); PLATELET COUNT (AUTO) 353 K/uL (130-430); RED BLOOD CELL COUNT(AUTO) 3.13 MIL/uL (4.2-6.2); RED CELL DISTRIBUTION WIDTH 19.7 % (9.0-15.0); WHITE BLOOD COUNT (AUTO) 7.1 K/uL (4.8-10.8)
[2017-10-10 08:19] LABS: CALCIUM 7.5 mg/dL (8.4-11.0); CREATININE 2.63 mg/dL (0.55-1.30); POTASSIUM 4.6 mmol/L (3.5-5.1)
[2017-10-10] MEDS ORDERED: NIFEDIPINE 30 MG TAB.ER.24 PO SCH (09:00)
[2017-10-10] MEDS ORDERED: FUROSEMIDE 40 MG TABLET PO SCH (09:00)
[2017-10-10 09:35] VITALS: BP_SYST 168
[2017-10-10] MEDS: LEVOTHYROXINE SODIUM 0.025 MG TABLET PO SCH (10:10)
[2017-10-10] MEDS: FAMOTIDINE 20 MG TABLET PO SCH ×2 (10:10→20:08)
[2017-10-10] MEDS: PANTOPRAZOLE SODIUM 40 MG TAB PO SCH (10:10)
[2017-10-10] MEDS: SUCRALFATE 1 GM TABLET PO SCH ×4 (10:10→20:07)
[2017-10-10] MEDS: CARVEDILOL 25 MG TABLET (COREG) PO SCH ×2 (10:10→20:08)
[2017-10-10] MEDS: ASPIRIN 81 MG TABLET(ECOTRIN) PO SCH (10:12)
[2017-10-10] MEDS: HEPARIN SODIUM,PORCINE 5000 UNITS/ML VIAL SUBCUT SCH ×2 (10:13→20:13)
[2017-10-10 12:00] VITALS: BP_SYST 151
[2017-10-10 16:00] VITALS: BP_SYST 148
[2017-10-10 16:01] LABS: BILIRUBIN,URINE NEGATIVE (NEGATIVE); CLARITY/URINE CLEAR (CLEAR); COLOR,URINE YELLOW (YELLOW); GLUCOSE,URINE 1+ (NEGATIVE); KETONES,URINE NEGATIVE (NEGATIVE); LEUKOCYTE ESTERASE ,URINE NEGATIVE (NEGATIVE); NITRITE, URINE NEGATIVE (NEGATIVE); PH,URINE 6.5 (5.0-8.0); PROTEIN URINE 3+ (NEGATIVE); UROBILINOGEN,URINE 0.2 (0.2-1.0)
[2017-10-10 16:15] LABS: BLOOD, URINE TRACE (NEGATIVE)
[2017-10-10 16:16] LABS: BACTERIA,URINE FEW /HPF (None Seen); RBC,URINE 0-3 /HPF (0-3)
[2017-10-10 16:17] LABS: MUCUS,URINE None Seen /LPF (None Seen)
[2017-10-10] MEDS: NACL 0.9% 1,000 ML IV SCH (16:30)
[2017-10-10 18:40] VITALS: BP_SYST 146
[2017-10-10 19:48] VITALS: BP_SYST 124
[2017-10-10] MEDS: FUROSEMIDE 40 MG/4 ML VIAL IVP SCH (20:15)
[2017-10-11 01:15] VITALS: BP_SYST 140
[2017-10-11] MEDS: NACL 0.9% 1,000 ML IV SCH (05:13)
[2017-10-11 06:10] LABS: BASOPHILS % (AUTO) 0.7 % (0.0-2.0); EOSINOPHILS # (AUTO) 0.2 K/uL (0.0-0.4); EOSINOPHILS % (AUTO) 3.5 % (0.0-4.0); HEMATOCRIT 25.1 % (36-48); HEMOGLOBIN 8.3 g/dL (12.0-16.0); LYMPHOCYTES # (AUTO) 2.6 K/uL (1.0-5.5); LYMPHOCYTES % (AUTO) 40.1 % (20.5-51.5); MEAN CORPUSCULAR HEMOGLOBIN 27 pg (27-31); MEAN CORPUSCULAR HGB CONC 33 % (32-36); MEAN CORPUSCULAR VOLUME 81 fL (79.0-98.0); MONOCYTES # (AUTO) 0.4 K/uL (0.0-1.0); MONOCYTES % (AUTO) 5.8 % (1.7-9.3); NEUTROPHILS # (AUTO) 3.2 K/uL (1.8-7.7); NEUTROPHILS % (AUTO) 49.9 % (40.0-70.0); PLATELET COUNT (AUTO) 326 K/uL (130-430); RED BLOOD CELL COUNT(AUTO) 3.11 MIL/uL (4.2-6.2); RED CELL DISTRIBUTION WIDTH 19.7 % (9.0-15.0); WHITE BLOOD COUNT (AUTO) 6.4 K/uL (4.8-10.8)
[2017-10-11 06:41] LABS: ANION GAP 5 (5-15); CHLORIDE 109 mmol/L (98-107); CREATININE 2.71 mg/dL (0.55-1.30); GLUCOSE 150 mg/dL (70-99); POTASSIUM 4.2 mmol/L (3.5-5.1); SODIUM SERUM 138 mmol/L (136-145); UREA NITROGEN, BLOOD 30 mg/dL (8-21)
[2017-10-11 07:01] LABS: ALBUMIN 1.7 g/dL (3.4-4.8); ASPARTATE AMINOTRANSFERASE 12 U/L (10-37); THYROID STIMULATING HORMONE 8.76 uIu/mL (0.36-3.74); TOTAL BILIRUBIN 0.2 mg/dL (0.0-1.0)
[2017-10-11 07:41] LABS: GFR AFRICAN AMERICAN 24 mL/min (>90)
[2017-10-11 08:01] LABS: ALANINE AMINOTRANSFERASE < 5 U/L (12-78)
[2017-10-11] MEDS ORDERED: NIFEDIPINE 30 MG TAB.ER.24 PO SCH (09:00)
[2017-10-11 09:08] VITALS: BP_SYST 155
[2017-10-11] MEDS: FAMOTIDINE 20 MG TABLET PO SCH (09:10)
[2017-10-11] MEDS: FUROSEMIDE 40 MG/4 ML VIAL IVP SCH (09:10)
[2017-10-11] MEDS: LEVOTHYROXINE SODIUM 0.025 MG TABLET PO SCH (09:10)
[2017-10-11] MEDS: SUCRALFATE 1 GM TABLET PO SCH (09:11)
[2017-10-11] MEDS: PANTOPRAZOLE SODIUM 40 MG TAB PO SCH (09:11)
[2017-10-11] MEDS: CARVEDILOL 25 MG TABLET (COREG) PO SCH (09:11)
[2017-10-11] MEDS: ASPIRIN 81 MG TABLET(ECOTRIN) PO SCH (09:11)
[2017-10-11] MEDS: HEPARIN SODIUM,PORCINE 5000 UNITS/ML VIAL SUBCUT SCH (09:19)
[2017-10-11] MEDS ORDERED: FURO-149 PO (09:29)
[2017-10-11] MEDS ORDERED: POTA-118 PO (09:30)
[2017-10-11] MEDS ORDERED: NIFE-2 PO (09:31)
[2017-10-11 10:47] VITALS: BP_SYST 150
[2017-10-11 11:45] VITALS: BP_SYST 155
== END 2017-10-11 11:55 | disposition home or self-care (01) | DRG 194 ==
LOC: SED 15:19 → STU 18:57
PROVIDERS: ADMIT General Practice; ATTEND General Practice
PROC: 30233N1 Transfusion of Nonautologous Red Blood Cells into Peripheral Vein, Percutaneous Approach (ICD-10-PCS; principal; 2017-10-09)
DX: I13.2 Hypertensive heart and chronic kidney disease with heart failure and with stage 5 chronic kidney disease, or end stage renal disease (principal); N17.0 Acute kidney failure with tubular necrosis; E11.65 Type 2 diabetes mellitus with hyperglycemia; E44.0 Moderate protein-calorie malnutrition; E11.22 Type 2 diabetes mellitus with diabetic chronic kidney disease; E11.9 Type 2 diabetes mellitus without complications; D50.0 Iron deficiency anemia secondary to blood loss (chronic); N92.0 Excessive and frequent menstruation with regular cycle; I50.43 Acute on chronic combined systolic (congestive) and diastolic (congestive) heart failure; J44.9 Chronic obstructive pulmonary disease, unspecified; F17.210 Nicotine dependence, cigarettes, uncomplicated; N18.5 Chronic kidney disease, stage 5; R80.9 Proteinuria, unspecified; D63.1 Anemia in chronic kidney disease; I87.8 Other specified disorders of veins; E03.9 Hypothyroidism, unspecified; K21.9 Gastro-esophageal reflux disease without esophagitis; Z79.899 Other long term (current) drug therapy; Z98.891 History of uterine scar from previous surgery; Z91.19 Patient's noncompliance with other medical treatment and regimen; Z59.0 Homelessness
CPT/HCPCS: 36415; 36600; 71045; 80048; 80053; 81000-TC; 82272; 82803-TC; 83036; 83735-TC; 83880; 84443-TC; 84484; 85025; 85610-TC; 85730-TC; 86886; 86900; 86901; 86920; 93005; 94760; 96361; 96372; 96374; 96375; 99285; J0360; J1644; J1940; J2001; J2405; J7030; P9021

== ENCOUNTER 2017-11-24 18:47 | Inpatient (IN) | payer MEDICAID ==
[~2017-11-24] VITALS: Ht 160 cm; Wt 90.7 kg
[~2017-11-24 18:47] MED LIST changes: -ASPI-1063 PO; +ASPI-1154 PO; -CEPH-568 PO; +NIFE-2 PO; -NIFE90TA24 PO; +POTA10TA15 PO
[2017-11-24 18:53] VITALS: BP_SYST 135
[2017-11-24 19:35] LABS: BASOPHILS % (AUTO) 0.7 % (0.0-2.0); EOSINOPHILS # (AUTO) 0.3 K/uL (0.0-0.4); LYMPHOCYTES # (AUTO) 2.5 K/uL (1.0-5.5); MEAN CORPUSCULAR HGB CONC 33 % (32-36)
[2017-11-24 19:44] LABS: EOSINOPHILS % (AUTO) 4.5 % (0.0-4.0); LYMPHOCYTES % (AUTO) 39.2 % (20.5-51.5); MEAN CORPUSCULAR HEMOGLOBIN 27 pg (27-31); MEAN CORPUSCULAR VOLUME 82 fL (79.0-98.0); MONOCYTES # (AUTO) 0.4 K/uL (0.0-1.0); MONOCYTES % (AUTO) 6.2 % (1.7-9.3); NEUTROPHILS # (AUTO) 3.1 K/uL (1.8-7.7); NEUTROPHILS % (AUTO) 49.4 % (40.0-70.0); PLATELET COUNT (AUTO) 309 K/uL (130-430); RED BLOOD CELL COUNT(AUTO) 2.28 MIL/uL (4.2-6.2); RED CELL DISTRIBUTION WIDTH 17.8 % (9.0-15.0); WHITE BLOOD COUNT (AUTO) 6.4 K/uL (4.8-10.8)
[2017-11-24 19:45] LABS: CALCIUM 8.1 mg/dL (8.4-11.0); CREATININE 3.51 mg/dL (0.55-1.30); POTASSIUM 5.5 mmol/L (3.5-5.1); PROTHROMBIN TIME 10.3 SECS (9.5-12.5)
[2017-11-24 19:48] VITALS: BP_SYST 139
[2017-11-24 19:48] LABS: HEMATOCRIT 18.8 % (36-48); HEMOGLOBIN 6.2 g/dL (12.0-16.0)
[2017-11-24 19:56] LABS: BILIRUBIN,URINE NEGATIVE (NEGATIVE); BLOOD, URINE 1+ (NEGATIVE); CLARITY/URINE CLEAR (CLEAR); COLOR,URINE YELLOW (YELLOW); GLUCOSE,URINE TRACE (NEGATIVE); KETONES,URINE NEGATIVE (NEGATIVE); LEUKOCYTE ESTERASE ,URINE NEGATIVE (NEGATIVE); NITRITE, URINE NEGATIVE (NEGATIVE); PROTEIN URINE 3+ (NEGATIVE); UROBILINOGEN,URINE 0.2 (0.2-1.0)
[2017-11-24] MEDS ORDERED: CALCIUM GLUCONATE 2 GM in NS 100 ML IV ONE (20:00)
[2017-11-24] MEDS ORDERED: DEXTROSE 50% JECT 50 ML DISP.SYRIN IVP ONE (20:00)
[2017-11-24] MEDS ORDERED: ALBUTEROL SULFATE 0.083% 2.5 MG/3 ML VIAL.NEB INH ONE (20:00)
[2017-11-24] MEDS ORDERED: SODIUM POLYSTYRENE SULFONATE 15 GM/60 ML UDBTL PO ONE (20:00)
[2017-11-24] MEDS ORDERED: INSULIN REGULAR, HUMAN 10 UNITS/0.1 ML INJ IVP ONE (20:00)
[2017-11-24] MEDS ORDERED: SERT50TA12 PO (20:01)
[2017-11-24] MEDS ORDERED: TRAZ-123 PO (20:01)
[2017-11-24] MEDS ORDERED: LOSA50TA3 PO (20:01)
[2017-11-24 20:02] LABS: BACTERIA,URINE MODERATE /HPF (None Seen); RBC,URINE 0-3 /HPF (0-3); WBC,URINE 0-3 /HPF (0-3)
[2017-11-24 20:02] LABS: ALBUMIN 2.3 g/dL (3.4-4.8); FREE T4 (FREE THYROXINE) 0.5 ng/dL (0.6-1.6); TOTAL BILIRUBIN 0.1 mg/dL (0.0-1.0)
[2017-11-24] MEDS ORDERED: CALCIUM GLUCONATE 1 GM/10 ML VIAL ONE (20:25)
[2017-11-24] MEDS ORDERED: hydrALAZINE HCL 20 MG/ML VIAL IVP ONE (20:45)
[2017-11-24] MEDS ORDERED: FUROSEMIDE 40 MG/4 ML VIAL IVP ONE (21:00)
[2017-11-24] MEDS ORDERED: LABETALOL 100 MG/ 20ML VIAL ONE (21:10)
[2017-11-24] MEDS ORDERED: LABETALOL 100 MG/ 20ML VIAL IVP ONE (21:15)
[2017-11-24] MEDS ORDERED: cloNIDine HCL 0.1 MG TABLET PO ONE ×2 (21:30→21:45)
[2017-11-24 22:19] VITALS: BP_SYST 190
[2017-11-24] MEDS ORDERED: ACETAMINOPHEN 325 MG TABLET PO PRN (23:15)
[2017-11-24] MEDS ORDERED: DIPHENHYDRAMINE INJ 50 MG/ML VIAL IVP PRN (23:15)
[2017-11-24] MEDS ORDERED: CLONIDINE HCL 0.3 MG PO SCH (23:30)
[2017-11-24] MEDS ORDERED: cloNIDine HCL 0.1 MG TABLET PO SCH (23:30)
[2017-11-25 00:48] VITALS: BP_SYST 139
[2017-11-25 00:55] LABS: TOTAL IRON BIND. CAPACITY 257 ug/dL (250-450)
[2017-11-25] MEDS: CARVEDILOL 25 MG TABLET (COREG) PO SCH ×3 (01:08→21:07)
[2017-11-25] MEDS ORDERED: FUROSEMIDE 40 MG/4 ML VIAL IVP SCH (03:00)
[2017-11-25] MEDS: LEVOTHYROXINE SODIUM 0.025 MG TABLET PO SCH (07:06)
[2017-11-25 08:02] VITALS: BP_SYST 186
[2017-11-25] MEDS: SUCRALFATE 1 GM TABLET PO SCH ×4 (08:26→21:06)
[2017-11-25] MEDS: FAMOTIDINE 20 MG TABLET PO SCH (08:27)
[2017-11-25] MEDS: SERTRALINE HCL 50 MG TABLET PO SCH (08:27)
[2017-11-25] MEDS: FUROSEMIDE 40 MG TABLET PO SCH ×2 (08:27→21:08)
[2017-11-25] MEDS: NIFEDIPINE 30 MG TAB.ER.24 PO SCH (08:27)
[2017-11-25] MEDS: CYANOCOBALAMIN 1000 mCg TABLET PO SCH (08:27)
[2017-11-25] MEDS: cloNIDine HCL 0.1 MG TABLET PO SCH ×3 (08:28→22:54)
[2017-11-25] MEDS ORDERED: cloNIDine HCL 0.1 MG TABLET PO SCH (09:00)
[2017-11-25 11:57] LABS: CHOLESTEROL 168 mg/dL (<200); HDL CHOLESTEROL 48 mg/dL (>55); LDL CHOLESTEROL 111 mg/dL (<100); TRIGLYCERIDES 97 mg/dL (30-150)
[2017-11-25] MEDS ORDERED: LOSARTAN POTASSIUM 50 MG TABLET (COZAAR) PO ONE (12:30)
[2017-11-25] MEDS ORDERED: NEPHROVITE, (FOLIC ACID/VITAMIN B COMP W-C 1 TAB) PO ONE (12:30)
[2017-11-25 12:38] VITALS: BP_SYST 186
[2017-11-25 12:45] LABS: CALCIUM 8.3 mg/dL (8.4-11.0); CREATININE 3.23 mg/dL (0.55-1.30); POTASSIUM 4.9 mmol/L (3.5-5.1)
[2017-11-25 12:53] LABS: BASOPHILS # (AUTO) 0.1 K/uL (0.0-0.2); BASOPHILS % (AUTO) 0.9 % (0.0-2.0); EOSINOPHILS # (AUTO) 0.2 K/uL (0.0-0.4); EOSINOPHILS % (AUTO) 2.3 % (0.0-4.0); HEMATOCRIT 26.9 % (36-48); LYMPHOCYTES # (AUTO) 2.1 K/uL (1.0-5.5); LYMPHOCYTES % (AUTO) 30.5 % (20.5-51.5); MEAN CORPUSCULAR HEMOGLOBIN 28 pg (27-31); MEAN CORPUSCULAR HGB CONC 34 % (32-36); MEAN CORPUSCULAR VOLUME 83 fL (79.0-98.0); MONOCYTES # (AUTO) 0.4 K/uL (0.0-1.0); MONOCYTES % (AUTO) 5.6 % (1.7-9.3); NEUTROPHILS # (AUTO) 3.9 K/uL (1.8-7.7); NEUTROPHILS % (AUTO) 60.7 % (40.0-70.0); PLATELET COUNT (AUTO) 297 K/uL (130-430); RED BLOOD CELL COUNT(AUTO) 3.25 MIL/uL (4.2-6.2); RED CELL DISTRIBUTION WIDTH 15.8 % (9.0-15.0); WHITE BLOOD COUNT (AUTO) 6.7 K/uL (4.8-10.8)
[2017-11-25] MEDS: SOD FERRIC GLUC COMPLEX/SUC 125 MG in NS 100 ML IV SCH (13:59)
[2017-11-25 16:28] VITALS: BP_SYST 153
[2017-11-25] MEDS: LOSARTAN POTASSIUM 50 MG TABLET (COZAAR) PO SCH (21:08)
[2017-11-25] MEDS: traZODone HCL 50 MG TABLET (DESYREL) PO SCH (21:08)
[2017-11-26 00:25] VITALS: BP_SYST 165
[2017-11-26] MEDS: LEVOTHYROXINE SODIUM 0.025 MG TABLET PO SCH (05:56)
[2017-11-26 07:09] LABS: BASOPHILS % (AUTO) 0.6 % (0.0-2.0); EOSINOPHILS # (AUTO) 0.2 K/uL (0.0-0.4); EOSINOPHILS % (AUTO) 3.6 % (0.0-4.0); HEMATOCRIT 27.1 % (36-48); HEMOGLOBIN 9.1 g/dL (12.0-16.0); LYMPHOCYTES # (AUTO) 1.6 K/uL (1.0-5.5); LYMPHOCYTES % (AUTO) 26.4 % (20.5-51.5); MEAN CORPUSCULAR HEMOGLOBIN 28 pg (27-31); MEAN CORPUSCULAR HGB CONC 34 % (32-36); MEAN CORPUSCULAR VOLUME 83 fL (79.0-98.0); MONOCYTES # (AUTO) 0.3 K/uL (0.0-1.0); MONOCYTES % (AUTO) 5.6 % (1.7-9.3); NEUTROPHILS # (AUTO) 3.8 K/uL (1.8-7.7); NEUTROPHILS % (AUTO) 63.8 % (40.0-70.0); PLATELET COUNT (AUTO) 301 K/uL (130-430); RED BLOOD CELL COUNT(AUTO) 3.28 MIL/uL (4.2-6.2); RED CELL DISTRIBUTION WIDTH 15.6 % (9.0-15.0); WHITE BLOOD COUNT (AUTO) 5.9 K/uL (4.8-10.8)
[2017-11-26 07:24] LABS: CALCIUM 8.2 mg/dL (8.4-11.0); CREATININE 3.41 mg/dL (0.55-1.30); POTASSIUM 4.5 mmol/L (3.5-5.1)
[2017-11-26 07:37] LABS: ALBUMIN 2.1 g/dL (3.4-4.8); TOTAL BILIRUBIN 0.2 mg/dL (0.0-1.0)
[2017-11-26 08:10] VITALS: BP_SYST 171
[2017-11-26] MEDS: cloNIDine HCL 0.1 MG TABLET PO SCH ×3 (08:26→21:13)
[2017-11-26] MEDS: CYANOCOBALAMIN 1000 mCg TABLET PO SCH (08:26)
[2017-11-26] MEDS: FAMOTIDINE 20 MG TABLET PO SCH (08:26)
[2017-11-26] MEDS: SUCRALFATE 1 GM TABLET PO SCH ×4 (08:26→21:13)
[2017-11-26] MEDS: SERTRALINE HCL 50 MG TABLET PO SCH (08:27)
[2017-11-26] MEDS: NEPHROVITE, (FOLIC ACID/VITAMIN B COMP W-C 1 TAB) PO SCH (08:27)
[2017-11-26] MEDS: FUROSEMIDE 40 MG TABLET PO SCH ×2 (08:27→21:14)
[2017-11-26] MEDS: NIFEDIPINE 30 MG TAB.ER.24 PO SCH (08:28)
[2017-11-26] MEDS: CARVEDILOL 25 MG TABLET (COREG) PO SCH ×2 (08:28→21:13)
[2017-11-26] MEDS: LOSARTAN POTASSIUM 50 MG TABLET (COZAAR) PO SCH ×2 (08:29→21:14)
[2017-11-26 12:00] VITALS: BP_SYST 158
[2017-11-26] MEDS: SOD FERRIC GLUC COMPLEX/SUC 125 MG in NS 100 ML IV SCH (14:13)
[2017-11-26 14:37] VITALS: BP_SYST 163
[2017-11-26 20:52] VITALS: BP_SYST 142
[2017-11-26] MEDS: traZODone HCL 50 MG TABLET (DESYREL) PO SCH (21:13)
[2017-11-27 00:44] VITALS: BP_SYST 170
[2017-11-27] MEDS: LEVOTHYROXINE SODIUM 0.025 MG TABLET PO SCH (06:34)
[2017-11-27 06:54] LABS: BASOPHILS # (AUTO) 0.1 K/uL (0.0-0.2); BASOPHILS % (AUTO) 1.1 % (0.0-2.0); EOSINOPHILS # (AUTO) 0.2 K/uL (0.0-0.4); EOSINOPHILS % (AUTO) 3.8 % (0.0-4.0); HEMATOCRIT 27.6 % (36-48); HEMOGLOBIN 9.2 g/dL (12.0-16.0); LYMPHOCYTES # (AUTO) 1.7 K/uL (1.0-5.5); LYMPHOCYTES % (AUTO) 32.4 % (20.5-51.5); MEAN CORPUSCULAR HEMOGLOBIN 28 pg (27-31); MEAN CORPUSCULAR HGB CONC 33 % (32-36); MEAN CORPUSCULAR VOLUME 84 fL (79.0-98.0); MONOCYTES # (AUTO) 0.3 K/uL (0.0-1.0); MONOCYTES % (AUTO) 6.5 % (1.7-9.3); NEUTROPHILS % (AUTO) 56.2 % (40.0-70.0); PLATELET COUNT (AUTO) 309 K/uL (130-430); RED CELL DISTRIBUTION WIDTH 15.9 % (9.0-15.0); WHITE BLOOD COUNT (AUTO) 5.3 K/uL (4.8-10.8)
[2017-11-27 07:03] LABS: CALCIUM 8.1 mg/dL (8.4-11.0); CREATININE 3.33 mg/dL (0.55-1.30); POTASSIUM 4.4 mmol/L (3.5-5.1)
[2017-11-27 08:00] VITALS: BP_SYST 164
[2017-11-27 08:42] LABS: RETICULOCYTE COUNT 1.1 % (0.5-1.5)
[2017-11-27] MEDS ORDERED: ALFENTANIL HCL 1000 MCG/2 ML AMP IVP ONE (08:45)
[2017-11-27] MEDS ORDERED: SEVOFLURANE 15 MIN GAS INH ONE (08:45)
[2017-11-27] MEDS ORDERED: NS 1000 ML IV.SOLN IV ONE (08:45)
[2017-11-27] MEDS ORDERED: ONDANSETRON HCL 4 MG/2 ML VIAL IVP ONE (08:45)
[2017-11-27] MEDS ORDERED: KETOROLAC TROMETHAMINE 30 MG VIAL IVP ONE (08:45)
[2017-11-27] MEDS ORDERED: ROCURONIUM BROMIDE 10 MG/ML (ZEMURON) IV ONE (08:45)
[2017-11-27] MEDS ORDERED: PROPOFOL 200MG/ 20ML VIAL (DIPRIVAN) IV ONE (08:45)
[2017-11-27] MEDS ORDERED: DEXAMETHASONE SOD PHOSPHATE 4 MG/ML VIAL IVP ONE (08:45)
[2017-11-27] MEDS ORDERED: LR 1,000 ML IV SCH (09:19)
[2017-11-27] MEDS ORDERED: HYDROmorphone 1 MG INJ. 1 MG/ML AMPUL IVP PRN (09:30)
[2017-11-27] MEDS ORDERED: MEPERIDINE HCL/PF 25 MG/ML DISP.SYRIN IVP PRN (09:30)
[2017-11-27] MEDS ORDERED: HYDROmorphone 2 MG/ML VIAL IVP PRN ×2 (09:30)
[2017-11-27] MEDS ORDERED: EPOETIN ALFA 4,000 UNITS/ML VIAL SUBCUT ONE (10:00)
[2017-11-27] MEDS ORDERED: DILTIAZEM HCL 50 MG/10 ML VIAL IV ONE (10:10)
[2017-11-27] MEDS ORDERED: DILTIAZEM HCL 25 MG/5 ML VIAL IVP ONE (10:30)
[2017-11-27] MEDS: SERTRALINE HCL 50 MG TABLET PO SCH (11:04)
[2017-11-27] MEDS: NIFEDIPINE 30 MG TAB.ER.24 PO SCH (11:05)
[2017-11-27] MEDS: NEPHROVITE, (FOLIC ACID/VITAMIN B COMP W-C 1 TAB) PO SCH (11:05)
[2017-11-27] MEDS: FAMOTIDINE 20 MG TABLET PO SCH (11:05)
[2017-11-27] MEDS: SUCRALFATE 1 GM TABLET PO SCH ×4 (11:06→21:10)
[2017-11-27] MEDS: CYANOCOBALAMIN 1000 mCg TABLET PO SCH (11:06)
[2017-11-27] MEDS: FUROSEMIDE 40 MG TABLET PO SCH ×2 (11:07→21:09)
[2017-11-27] MEDS: cloNIDine HCL 0.1 MG TABLET PO SCH ×3 (11:07→23:02)
[2017-11-27] MEDS: CARVEDILOL 25 MG TABLET (COREG) PO SCH ×2 (11:08→23:02)
[2017-11-27] MEDS: LOSARTAN POTASSIUM 50 MG TABLET (COZAAR) PO SCH ×2 (11:08→21:11)
[2017-11-27] MEDS ORDERED: hydrALAZINE HCL 20 MG/ML VIAL IVP ONE (13:00)
[2017-11-27 13:20] VITALS: BP_SYST 180
[2017-11-27] MEDS: SOD FERRIC GLUC COMPLEX/SUC 125 MG in NS 100 ML IV SCH (14:03)
[2017-11-27 14:20] VITALS: BP_SYST 176
[2017-11-27] MEDS: hydrALAZINE HCL 25 MG TABLET PO PRN (14:49)
[2017-11-27] MEDS ORDERED: DEXTROSE 50% JECT 50 ML DISP.SYRIN IVP PRN (15:00)
[2017-11-27] MEDS ORDERED: SODIUM POLYSTYRENE SULFONATE 15 GM/60 ML UDBTL PO ONE (15:18)
[2017-11-27 16:00] VITALS: BP_SYST 183
[2017-11-27] MEDS: INSULIN REGULAR, HUMAN 100 UNITS/ML, 10 ML VIAL (novoLIN R) SUBCUT PRN (17:25)
[2017-11-27 20:58] VITALS: BP_SYST 119
[2017-11-27] MEDS: traZODone HCL 50 MG TABLET (DESYREL) PO SCH (21:09)
[2017-11-28 00:49] VITALS: BP_SYST 143
[2017-11-28] MEDS: LEVOTHYROXINE SODIUM 0.025 MG TABLET PO SCH (06:02)
[2017-11-28 07:04] LABS: BASOPHILS % (AUTO) 0.3 % (0.0-2.0); EOSINOPHILS # (AUTO) 0.2 K/uL (0.0-0.4); EOSINOPHILS % (AUTO) 1.8 % (0.0-4.0); HEMOGLOBIN 8.8 g/dL (12.0-16.0); LYMPHOCYTES # (AUTO) 1.2 K/uL (1.0-5.5); LYMPHOCYTES % (AUTO) 12.1 % (20.5-51.5); MEAN CORPUSCULAR HEMOGLOBIN 27 pg (27-31); MEAN CORPUSCULAR HGB CONC 33 % (32-36); MEAN CORPUSCULAR VOLUME 84 fL (79.0-98.0); MONOCYTES # (AUTO) 0.4 K/uL (0.0-1.0); MONOCYTES % (AUTO) 4.3 % (1.7-9.3); NEUTROPHILS # (AUTO) 8.1 K/uL (1.8-7.7); NEUTROPHILS % (AUTO) 81.5 % (40.0-70.0); PLATELET COUNT (AUTO) 284 K/uL (130-430); RED BLOOD CELL COUNT(AUTO) 3.22 MIL/uL (4.2-6.2); RED CELL DISTRIBUTION WIDTH 15.8 % (9.0-15.0); WHITE BLOOD COUNT (AUTO) 9.9 K/uL (4.8-10.8)
[2017-11-28 07:19] LABS: CALCIUM 7.9 mg/dL (8.4-11.0); CREATININE 3.46 mg/dL (0.55-1.30); POTASSIUM 4.1 mmol/L (3.5-5.1)
[2017-11-28 08:00] VITALS: BP_SYST 173
[2017-11-28] MEDS: FAMOTIDINE 20 MG TABLET PO SCH (08:25)
[2017-11-28] MEDS: cloNIDine HCL 0.1 MG TABLET PO SCH ×3 (08:25→20:20)
[2017-11-28] MEDS: FUROSEMIDE 40 MG TABLET PO SCH ×2 (08:26→20:21)
[2017-11-28] MEDS: CYANOCOBALAMIN 1000 mCg TABLET PO SCH (08:26)
[2017-11-28] MEDS: SUCRALFATE 1 GM TABLET PO SCH ×4 (08:27→20:21)
[2017-11-28] MEDS: SERTRALINE HCL 50 MG TABLET PO SCH (08:27)
[2017-11-28] MEDS: CARVEDILOL 25 MG TABLET (COREG) PO SCH ×2 (08:27→20:21)
[2017-11-28] MEDS: NEPHROVITE, (FOLIC ACID/VITAMIN B COMP W-C 1 TAB) PO SCH (08:27)
[2017-11-28] MEDS: LOSARTAN POTASSIUM 50 MG TABLET (COZAAR) PO SCH ×2 (08:28→20:21)
[2017-11-28] MEDS: NIFEDIPINE 30 MG TAB.ER.24 PO SCH (08:28)
[2017-11-28 11:00] VITALS: BP_SYST 135
[2017-11-28] MEDS: INSULIN REGULAR, HUMAN 100 UNITS/ML, 10 ML VIAL (novoLIN R) SUBCUT PRN ×2 (11:12→17:05)
[2017-11-28] MEDS: SOD FERRIC GLUC COMPLEX/SUC 125 MG in NS 100 ML IV SCH (13:39)
[2017-11-28 15:00] VITALS: BP_SYST 122
[2017-11-28] MEDS: traZODone HCL 50 MG TABLET (DESYREL) PO SCH (20:21)
[2017-11-28] MEDS: TEMAZEPAM 15 MG CAPSULE PO PRN (20:25)
[2017-11-28 20:49] VITALS: BP_SYST 129
[2017-11-29 00:40] VITALS: BP_SYST 149
[2017-11-29 05:58] LABS: BASOPHILS # (AUTO) 0.1 K/uL (0.0-0.2); BASOPHILS % (AUTO) 0.6 % (0.0-2.0); EOSINOPHILS # (AUTO) 0.4 K/uL (0.0-0.4); EOSINOPHILS % (AUTO) 4.5 % (0.0-4.0); HEMATOCRIT 26.5 % (36-48); HEMOGLOBIN 8.9 g/dL (12.0-16.0); LYMPHOCYTES # (AUTO) 3.1 K/uL (1.0-5.5); LYMPHOCYTES % (AUTO) 34.7 % (20.5-51.5); MEAN CORPUSCULAR HEMOGLOBIN 28 pg (27-31); MEAN CORPUSCULAR HGB CONC 33 % (32-36); MEAN CORPUSCULAR VOLUME 84 fL (79.0-98.0); MONOCYTES # (AUTO) 0.6 K/uL (0.0-1.0); MONOCYTES % (AUTO) 6.7 % (1.7-9.3); NEUTROPHILS # (AUTO) 4.7 K/uL (1.8-7.7); NEUTROPHILS % (AUTO) 53.5 % (40.0-70.0); PLATELET COUNT (AUTO) 295 K/uL (130-430); RED BLOOD CELL COUNT(AUTO) 3.18 MIL/uL (4.2-6.2); RED CELL DISTRIBUTION WIDTH 16.2 % (9.0-15.0); WHITE BLOOD COUNT (AUTO) 8.9 K/uL (4.8-10.8)
[2017-11-29 06:13] LABS: CALCIUM 7.9 mg/dL (8.4-11.0); CREATININE 3.55 mg/dL (0.55-1.30); POTASSIUM 4.3 mmol/L (3.5-5.1)
[2017-11-29] MEDS: LEVOTHYROXINE SODIUM 0.025 MG TABLET PO SCH (06:28)
[2017-11-29] MEDS: INSULIN REGULAR, HUMAN 100 UNITS/ML, 10 ML VIAL (novoLIN R) SUBCUT PRN ×3 (06:28→20:51)
[2017-11-29 08:00] VITALS: BP_SYST 102
[2017-11-29] MEDS: NEPHROVITE, (FOLIC ACID/VITAMIN B COMP W-C 1 TAB) PO SCH (08:10)
[2017-11-29] MEDS: SUCRALFATE 1 GM TABLET PO SCH ×4 (08:10→20:47)
[2017-11-29] MEDS: CYANOCOBALAMIN 1000 mCg TABLET PO SCH (08:10)
[2017-11-29] MEDS: FUROSEMIDE 40 MG TABLET PO SCH ×2 (08:10→20:47)
[2017-11-29] MEDS: FAMOTIDINE 20 MG TABLET PO SCH (08:10)
[2017-11-29] MEDS: SERTRALINE HCL 50 MG TABLET PO SCH (08:10)
[2017-11-29] MEDS: NIFEDIPINE 30 MG TAB.ER.24 PO SCH (08:11)
[2017-11-29] MEDS: CARVEDILOL 25 MG TABLET (COREG) PO SCH ×2 (09:00→20:49)
[2017-11-29] MEDS: LOSARTAN POTASSIUM 50 MG TABLET (COZAAR) PO SCH ×2 (09:00→20:49)
[2017-11-29] MEDS: cloNIDine HCL 0.1 MG TABLET PO SCH ×3 (09:00→20:50)
[2017-11-29] MEDS: hydrALAZINE HCL 25 MG TABLET PO PRN (11:11)
[2017-11-29 11:14] VITALS: BP_SYST 183
[2017-11-29] MEDS: SOD FERRIC GLUC COMPLEX/SUC 125 MG in NS 100 ML IV SCH (13:40)
[2017-11-29] MEDS ORDERED: amLODIPine BESYLATE 10 MG TABLET PO ONE (14:30)
[2017-11-29 20:15] VITALS: BP_SYST 157
[2017-11-29] MEDS: traZODone HCL 50 MG TABLET (DESYREL) PO SCH (20:47)
[2017-11-29] MEDS: TEMAZEPAM 15 MG CAPSULE PO PRN (20:48)
[2017-11-30 00:07] VITALS: BP_SYST 142
[2017-11-30 06:09] LABS: BASOPHILS % (AUTO) 0.4 % (0.0-2.0); EOSINOPHILS # (AUTO) 0.2 K/uL (0.0-0.4); EOSINOPHILS % (AUTO) 2.5 % (0.0-4.0); HEMATOCRIT 27.8 % (36-48); HEMOGLOBIN 9.2 g/dL (12.0-16.0); LYMPHOCYTES # (AUTO) 1.7 K/uL (1.0-5.5); LYMPHOCYTES % (AUTO) 22.1 % (20.5-51.5); MEAN CORPUSCULAR HEMOGLOBIN 28 pg (27-31); MEAN CORPUSCULAR HGB CONC 33 % (32-36); MEAN CORPUSCULAR VOLUME 85 fL (79.0-98.0); MONOCYTES # (AUTO) 0.4 K/uL (0.0-1.0); MONOCYTES % (AUTO) 5.8 % (1.7-9.3); NEUTROPHILS # (AUTO) 5.4 K/uL (1.8-7.7); NEUTROPHILS % (AUTO) 69.2 % (40.0-70.0); PLATELET COUNT (AUTO) 302 K/uL (130-430); RED BLOOD CELL COUNT(AUTO) 3.29 MIL/uL (4.2-6.2); WHITE BLOOD COUNT (AUTO) 7.7 K/uL (4.8-10.8)
[2017-11-30] MEDS: LEVOTHYROXINE SODIUM 0.025 MG TABLET PO SCH (06:48)
[2017-11-30 08:00] VITALS: BP_SYST 143
[2017-11-30 08:10] LABS: CALCIUM 8.3 mg/dL (8.4-11.0); CREATININE 3.53 mg/dL (0.55-1.30); POTASSIUM 4.2 mmol/L (3.5-5.1)
[2017-11-30] MEDS: SUCRALFATE 1 GM TABLET PO SCH ×4 (09:55→20:34)
[2017-11-30] MEDS: CYANOCOBALAMIN 1000 mCg TABLET PO SCH (09:55)
[2017-11-30] MEDS: FAMOTIDINE 20 MG TABLET PO SCH (09:55)
[2017-11-30] MEDS: NEPHROVITE, (FOLIC ACID/VITAMIN B COMP W-C 1 TAB) PO SCH (09:56)
[2017-11-30] MEDS: cloNIDine HCL 0.1 MG TABLET PO SCH ×3 (09:56→20:34)
[2017-11-30] MEDS: FUROSEMIDE 40 MG TABLET PO SCH ×2 (09:56→20:35)
[2017-11-30] MEDS: SERTRALINE HCL 50 MG TABLET PO SCH (09:56)
[2017-11-30] MEDS: NIFEDIPINE 30 MG TAB.ER.24 PO SCH (09:57)
[2017-11-30] MEDS: amLODIPine BESYLATE 10 MG TABLET PO SCH (09:57)
[2017-11-30] MEDS: LOSARTAN POTASSIUM 50 MG TABLET (COZAAR) PO SCH ×2 (09:58→20:35)
[2017-11-30] MEDS: CARVEDILOL 25 MG TABLET (COREG) PO SCH ×2 (09:59→20:53)
[2017-11-30 10:21] VITALS: BP_SYST 143
[2017-11-30 11:47] VITALS: BP_SYST 125
[2017-11-30] MEDS: INSULIN REGULAR, HUMAN 100 UNITS/ML, 10 ML VIAL (novoLIN R) SUBCUT PRN ×3 (12:31→20:38)
[2017-11-30] MEDS: SOD FERRIC GLUC COMPLEX/SUC 125 MG in NS 100 ML IV SCH (14:16)
[2017-11-30 15:22] VITALS: BP_SYST 143
[2017-11-30 20:00] VITALS: BP_SYST 122
[2017-11-30] MEDS: traZODone HCL 50 MG TABLET (DESYREL) PO SCH (20:35)
[2017-12-01] VITALS (8 sets, daily range): BP systolic 96–161
[2017-12-01] MEDS: LEVOTHYROXINE SODIUM 0.025 MG TABLET PO SCH (06:07)
[2017-12-01] MEDS: SUCRALFATE 1 GM TABLET PO SCH ×3 (08:27→17:44)
[2017-12-01] MEDS: NEPHROVITE, (FOLIC ACID/VITAMIN B COMP W-C 1 TAB) PO SCH (08:27)
[2017-12-01] MEDS: FAMOTIDINE 20 MG TABLET PO SCH (08:28)
[2017-12-01] MEDS: CYANOCOBALAMIN 1000 mCg TABLET PO SCH (08:28)
[2017-12-01] MEDS: CARVEDILOL 25 MG TABLET (COREG) PO SCH (08:28)
[2017-12-01] MEDS: LOSARTAN POTASSIUM 50 MG TABLET (COZAAR) PO SCH (08:28)
[2017-12-01] MEDS: SERTRALINE HCL 50 MG TABLET PO SCH (08:29)
[2017-12-01] MEDS: FUROSEMIDE 40 MG TABLET PO SCH (08:29)
[2017-12-01] MEDS: NIFEDIPINE 30 MG TAB.ER.24 PO SCH (08:29)
[2017-12-01] MEDS: amLODIPine BESYLATE 10 MG TABLET PO SCH (08:29)
[2017-12-01] MEDS: cloNIDine HCL 0.1 MG TABLET PO SCH ×2 (08:30→14:37)
[2017-12-01] MEDS: INSULIN REGULAR, HUMAN 100 UNITS/ML, 10 ML VIAL (novoLIN R) SUBCUT PRN ×2 (11:31→17:42)
[2017-12-01] MEDS: SOD FERRIC GLUC COMPLEX/SUC 125 MG in NS 100 ML IV SCH (13:02)
[2017-12-01] MEDS ORDERED: NOR10 PO (14:59)
[2017-12-01] MEDS ORDERED: NEPH PO (15:03)
[2017-12-01] MEDS ORDERED: FAMO20TA8 PO (15:04)
[2017-12-01] MEDS ORDERED: HYDR-4038 PO (15:05)
[2017-12-01] MEDS ORDERED: SYN50 PO (15:06)
[2017-12-01] MEDS ORDERED: TRAZ-123 PO (15:07)
[2017-12-01] MEDS ORDERED: INSU100V7 SUBCUT (15:11)
== END 2017-12-01 19:00 | disposition home or self-care (01) | DRG 517 ==
LOC: SED 18:47 → STU 20:13 → SMU 11-30 18:15
PROVIDERS: ADMIT Internal Medicine; ATTEND Internal Medicine
PROC: 30233N1 Transfusion of Nonautologous Red Blood Cells into Peripheral Vein, Percutaneous Approach (ICD-10-PCS; 2017-11-25)
PROC: 0UDB8ZZ Extraction of Endometrium, Via Natural or Artificial Opening Endoscopic (ICD-10-PCS; principal; 2017-11-27 08:30)
DX: N92.0 Excessive and frequent menstruation with regular cycle (principal); E43 Unspecified severe protein-calorie malnutrition; N17.0 Acute kidney failure with tubular necrosis; N18.4 Chronic kidney disease, stage 4 (severe); I50.43 Acute on chronic combined systolic (congestive) and diastolic (congestive) heart failure; I13.0 Hypertensive heart and chronic kidney disease with heart failure and stage 1 through stage 4 chronic kidney disease, or unspecified chronic kidney disease; D62 Acute posthemorrhagic anemia; E11.22 Type 2 diabetes mellitus with diabetic chronic kidney disease; J44.1 Chronic obstructive pulmonary disease with (acute) exacerbation; E87.5 Hyperkalemia; E66.9 Obesity, unspecified; I89.0 Lymphedema, not elsewhere classified; I25.10 Atherosclerotic heart disease of native coronary artery without angina pectoris; F17.210 Nicotine dependence, cigarettes, uncomplicated; D63.1 Anemia in chronic kidney disease; N93.8 Other specified abnormal uterine and vaginal bleeding; E03.9 Hypothyroidism, unspecified; I87.8 Other specified disorders of veins; F10.11 Alcohol abuse, in remission; N85.2 Hypertrophy of uterus; Z80.41 Family history of malignant neoplasm of ovary; Z79.899 Other long term (current) drug therapy; Z79.4 Long term (current) use of insulin; Z59.0 Homelessness; Z98.891 History of uterine scar from previous surgery; Z80.1 Family history of malignant neoplasm of trachea, bronchus and lung; Z80.3 Family history of malignant neoplasm of breast; Z68.35 Body mass index [BMI] 35.0-35.9, adult
CPT/HCPCS: 36415; 76830-TC; 76857; 80048; 80053; 80061; 81000-TC; 82140-TC; 82962; 83540-TC; 83550-TC; 83605; 83880; 84439; 84703; 85025; 85044-TC; 85610-TC; 86886; 86900; 86901; 86920; 87040-TC; 87081; 87086; 88305; 93005; 94010; 94640; 94760; 96374; 96375; 99291; J0610; J0885; J1100; J1815; J1885; J1940; J2405; J2704; J2916; J3490; J7030; J7040; J7613; P9021

== ENCOUNTER 2018-06-03 14:25 | Inpatient (IN) | payer MEDICAID ==
[~2018-06-03] VITALS: Ht 161.3 cm; Wt 80.8 kg
[~2018-06-03 14:25] MED LIST changes: -ASPI-1154 PO; -CYAN100T PO; +HYDR-4038 PO; +INSU100V7 SUBCUT; -LEVO25TA7 PO; +NEPH PO; -NIFE-2 PO; +NOR10 PO; -POTA10TA15 PO; +SYN50 PO; +TRAZ-218 PO
[2018-06-03 14:35] VITALS: BP_SYST 200
[2018-06-03 16:35] LABS: CALCIUM 7.9 mg/dL (8.4-11.0); CREATININE 3.14 mg/dL (0.55-1.30); POTASSIUM 5.1 mmol/L (3.5-5.1)
[2018-06-03 16:36] LABS: INR 0.9 (0.8-1.2); PROTHROMBIN TIME 9.6 SECS (9.5-12.5)
[2018-06-03 16:45] LABS: ALBUMIN 2.7 g/dL (3.4-4.8); TOTAL BILIRUBIN 0.1 mg/dL (0.0-1.0)
[2018-06-03 16:46] LABS: BASOPHILS # (AUTO) 0.1 K/uL (0.0-0.2); BASOPHILS % (AUTO) 0.8 % (0.0-2.0); EOSINOPHILS # (AUTO) 0.2 K/uL (0.0-0.4); EOSINOPHILS % (AUTO) 2.6 % (0.0-4.0); LYMPHOCYTES # (AUTO) 1.8 K/uL (1.0-5.5); LYMPHOCYTES % (AUTO) 27.1 % (20.5-51.5); MEAN CORPUSCULAR HEMOGLOBIN 27 pg (27-31); MEAN CORPUSCULAR HGB CONC 32 % (32-36); MEAN CORPUSCULAR VOLUME 84 fL (79.0-98.0); MONOCYTES # (AUTO) 0.4 K/uL (0.0-1.0); MONOCYTES % (AUTO) 5.8 % (1.7-9.3); NEUTROPHILS % (AUTO) 63.7 % (40.0-70.0); PLATELET COUNT (AUTO) 379 K/uL (130-430); RED BLOOD CELL COUNT(AUTO) 2.37 MIL/uL (4.2-6.2); RED CELL DISTRIBUTION WIDTH 13.4 % (9.0-15.0); WHITE BLOOD COUNT (AUTO) 6.5 K/uL (4.8-10.8)
[2018-06-03 16:50] LABS: HEMOGLOBIN 6.4 g/dL (12.0-16.0)
[2018-06-03 16:51] LABS: HEMATOCRIT 19.8 % (36-48)
[2018-06-03] MEDS ORDERED: ASPIRIN 81 MG TAB.CHEW PO ONE (17:15)
[2018-06-03 17:29] LABS: BILIRUBIN,URINE NEGATIVE (NEGATIVE); BLOOD, URINE 1+ (NEGATIVE); CLARITY/URINE CLEAR (CLEAR); COLOR,URINE YELLOW (YELLOW); GLUCOSE,URINE TRACE (NEGATIVE); KETONES,URINE NEGATIVE (NEGATIVE); LEUKOCYTE ESTERASE ,URINE NEGATIVE (NEGATIVE); NITRITE, URINE NEGATIVE (NEGATIVE); PROTEIN URINE 2+ (NEGATIVE); UROBILINOGEN,URINE 0.2 (0.2-1.0)
[2018-06-03 17:37] LABS: BACTERIA,URINE RARE /HPF (None Seen); WBC,URINE 0-3 /HPF (0-3)
[2018-06-03 17:42] LABS: BARBITURATE, URINE NEGATIVE (NEG <=200); BENZODIAZEPINE, URINE NEGATIVE (NEG <=150); CANNABINOID, URINE NEGATIVE (NEG <=50); COCAINE, URINE NEGATIVE (NEG <=150); METHAMPHETAMINES SCREEN,URINE NEGATIVE (NEG <=500); OPIATE, URINE NEGATIVE (NEG <=100); PHENCYCLIDINE SCREEN,URINE NEGATIVE (NEG <=25); UR TRICYCLIC ANTIDEPRESSANTS NEGATIVE (NEG <=300); URINE AMPHETAMINE NEGATIVE (NEG <=500); URINE METHADONE NEGATIVE (NEG <=200); URINE OXYCODONE SCREEN NEGATIVE (NEG <=100); URINE PROPOXYPHENE SCREEN NEGATIVE (NEG <=300)
[2018-06-03] MEDS ORDERED: INSULIN ASPART 100 UNITS/ML, 10 ML VIAL (NovoLOG) SUBCUT PRN (19:00)
[2018-06-03] MEDS ORDERED: GLUCOSE 15 GM GEL (in 37.5 GM TUBE) PO PRN (19:45)
[2018-06-03] MEDS ORDERED: D5W 1,000 ML IV PRN (19:45)
[2018-06-03] MEDS ORDERED: DEXTROSE 50%-WATER 50 ML DISP.SYRIN IVP PRN (19:45)
[2018-06-03 20:12] VITALS: BP_SYST 203
[2018-06-03] MEDS ORDERED: ACETAMINOPHEN 325 MG TABLET PO PRN (21:00)
[2018-06-03] MEDS ORDERED: IPRATROPIUM/ALBUTEROL SULFATE 3 ML AMPUL.NEB (DUONEB) INH PRN (21:15)
[2018-06-03] MEDS ORDERED: cloNIDine HCL 0.1 MG TABLET PO PRN (21:15)
[2018-06-03] MEDS ORDERED: CARVEDILOL 25 MG TABLET (COREG) PO ONE (21:15)
[2018-06-03] MEDS: traZODone HCL 50 MG TABLET (DESYREL) PO SCH (21:30)
[2018-06-03] MEDS: hydrALAZINE HCL 25 MG TABLET PO SCH (21:30)
[2018-06-03] MEDS: SUCRALFATE 1 GM TABLET PO SCH (21:30)
[2018-06-03] MEDS: INSULIN ASPART 100 UNITS/ML, 10 ML VIAL (NovoLOG) SUBCUT PRN (21:33)
[2018-06-03] MEDS ORDERED: ONDANSETRON HCL 4 MG/2 ML VIAL IVP PRN (22:00)
[2018-06-03 23:17] VITALS: BP_SYST 203
[2018-06-04] VITALS (8 sets, daily range): BP systolic 129–171
[2018-06-04] MEDS: INSULIN ASPART 100 UNITS/ML, 10 ML VIAL (NovoLOG) SUBCUT PRN ×2 (06:21→22:00)
[2018-06-04 07:17] LABS: BASOPHILS % (AUTO) 0.8 % (0.0-2.0); EOSINOPHILS # (AUTO) 0.1 K/uL (0.0-0.4); EOSINOPHILS % (AUTO) 2.1 % (0.0-4.0); LYMPHOCYTES # (AUTO) 1.3 K/uL (1.0-5.5); LYMPHOCYTES % (AUTO) 22.5 % (20.5-51.5); MEAN CORPUSCULAR HEMOGLOBIN 27 pg (27-31); MEAN CORPUSCULAR HGB CONC 33 % (32-36); MEAN CORPUSCULAR VOLUME 84 fL (79.0-98.0); MONOCYTES # (AUTO) 0.4 K/uL (0.0-1.0); MONOCYTES % (AUTO) 7.1 % (1.7-9.3); NEUTROPHILS # (AUTO) 3.8 K/uL (1.8-7.7); NEUTROPHILS % (AUTO) 67.5 % (40.0-70.0); PLATELET COUNT (AUTO) 310 K/uL (130-430); RED BLOOD CELL COUNT(AUTO) 2.34 MIL/uL (4.2-6.2); RED CELL DISTRIBUTION WIDTH 13.2 % (9.0-15.0); WHITE BLOOD COUNT (AUTO) 5.6 K/uL (4.8-10.8)
[2018-06-04 07:35] LABS: HEMATOCRIT 19.6 % (36-48); HEMOGLOBIN 6.4 g/dL (12.0-16.0)
[2018-06-04 07:59] LABS: CALCIUM 7.9 mg/dL (8.4-11.0); CREATININE 3.22 mg/dL (0.55-1.30); POTASSIUM 4.6 mmol/L (3.5-5.1)
[2018-06-04 08:26] LABS: ALBUMIN 2.1 g/dL (3.4-4.8); THYROID STIMULATING HORMONE 4.01 uIu/mL (0.36-3.74); TOTAL BILIRUBIN 0.2 mg/dL (0.0-1.0)
[2018-06-04] MEDS ORDERED: FAMOTIDINE 20 MG TABLET PO SCH (09:00)
[2018-06-04] MEDS ORDERED: cloNIDine HCL 0.1 MG TABLET PO PRN (09:30)
[2018-06-04] MEDS: amLODIPine BESYLATE 10 MG TABLET PO SCH (09:41)
[2018-06-04] MEDS: SUCRALFATE 1 GM TABLET PO SCH ×4 (09:42→21:55)
[2018-06-04] MEDS: hydrALAZINE HCL 25 MG TABLET PO SCH ×3 (09:42→21:55)
[2018-06-04] MEDS: CARVEDILOL 25 MG TABLET (COREG) PO SCH ×2 (09:43→17:05)
[2018-06-04] MEDS ORDERED: FUROSEMIDE 20 MG/2 ML VIAL IVP ONE (09:45)
[2018-06-04] MEDS ORDERED: LEVOTHYROXINE SODIUM 0.05 MG TABLET PO ONE (15:00)
[2018-06-04] MEDS ORDERED: PANTOPRAZOLE SODIUM 40 MG TAB PO ONE (15:00)
[2018-06-04] MEDS: traZODone HCL 50 MG TABLET (DESYREL) PO SCH (21:55)
[2018-06-05 01:36] VITALS: BP_SYST 152
[2018-06-05] MEDS: INSULIN ASPART 100 UNITS/ML, 10 ML VIAL (NovoLOG) SUBCUT PRN (06:15)
[2018-06-05] MEDS ORDERED: LEVOTHYROXINE SODIUM 0.05 MG TABLET PO SCH (07:00)
[2018-06-05 08:15] VITALS: BP_SYST 165
[2018-06-05] MEDS: SUCRALFATE 1 GM TABLET PO SCH ×2 (08:23→13:58)
[2018-06-05] MEDS: amLODIPine BESYLATE 10 MG TABLET PO SCH (08:23)
[2018-06-05] MEDS: hydrALAZINE HCL 25 MG TABLET PO SCH ×2 (08:24→13:59)
[2018-06-05] MEDS: CARVEDILOL 25 MG TABLET (COREG) PO SCH (08:24)
[2018-06-05 08:53] LABS: BASOPHILS % (AUTO) 0.7 % (0.0-2.0); EOSINOPHILS # (AUTO) 0.2 K/uL (0.0-0.4); EOSINOPHILS % (AUTO) 2.9 % (0.0-4.0); HEMATOCRIT 27.1 % (36-48); HEMOGLOBIN 8.7 g/dL (12.0-16.0); LYMPHOCYTES # (AUTO) 1.2 K/uL (1.0-5.5); LYMPHOCYTES % (AUTO) 21.2 % (20.5-51.5); MEAN CORPUSCULAR HEMOGLOBIN 27 pg (27-31); MEAN CORPUSCULAR HGB CONC 32 % (32-36); MEAN CORPUSCULAR VOLUME 85 fL (79.0-98.0); MONOCYTES # (AUTO) 0.3 K/uL (0.0-1.0); NEUTROPHILS # (AUTO) 4.1 K/uL (1.8-7.7); NEUTROPHILS % (AUTO) 69.2 % (40.0-70.0); PLATELET COUNT (AUTO) 303 K/uL (130-430); RED CELL DISTRIBUTION WIDTH 13.3 % (9.0-15.0); WHITE BLOOD COUNT (AUTO) 5.8 K/uL (4.8-10.8)
[2018-06-05] MEDS ORDERED: FUROSEMIDE 20 MG/2 ML VIAL IVP SCH (09:00)
[2018-06-05] MEDS ORDERED: PANTOPRAZOLE SODIUM 40 MG TAB PO SCH (09:00)
[2018-06-05 09:02] LABS: CREATININE 3.3 mg/dL (0.55-1.30); POTASSIUM 4.4 mmol/L (3.5-5.1)
[2018-06-05 11:37] VITALS: BP_SYST 141
[2018-06-05 12:06] LABS: FOLATE (FOLIC ACID) 11.3 ng/mL (>3.0)
[2018-06-05 15:11] VITALS: BP_SYST 141
[2018-06-05 15:39] VITALS: BP_SYST 143
== END 2018-06-05 16:30 | disposition home or self-care (01) | DRG 194 ==
LOC: SED 14:25 → STU 18:57
PROVIDERS: ADMIT Internal Medicine; ATTEND Internal Medicine
PROC: 30233N1 Transfusion of Nonautologous Red Blood Cells into Peripheral Vein, Percutaneous Approach (ICD-10-PCS; principal; 2018-06-04)
DX: I13.0 Hypertensive heart and chronic kidney disease with heart failure and stage 1 through stage 4 chronic kidney disease, or unspecified chronic kidney disease (principal); N17.0 Acute kidney failure with tubular necrosis; E43 Unspecified severe protein-calorie malnutrition; I50.43 Acute on chronic combined systolic (congestive) and diastolic (congestive) heart failure; E11.22 Type 2 diabetes mellitus with diabetic chronic kidney disease; J44.9 Chronic obstructive pulmonary disease, unspecified; I25.10 Atherosclerotic heart disease of native coronary artery without angina pectoris; N18.9 Chronic kidney disease, unspecified; K21.9 Gastro-esophageal reflux disease without esophagitis; I50.30 Unspecified diastolic (congestive) heart failure; Z59.0 Homelessness; Z87.891 Personal history of nicotine dependence; N18.4 Chronic kidney disease, stage 4 (severe); D64.9 Anemia, unspecified; D21.9 Benign neoplasm of connective and other soft tissue, unspecified
CPT/HCPCS: 36415; 70450-TC; 71045; 80048; 80053; 80307; 81000-TC; 82272; 82607; 82746; 82962; 83880; 84439; 84443-TC; 84484; 84702-TC; 85025; 85610-TC; 85730-TC; 86886; 86900; 86901; 86920; 87230-TC; 90656; 93005; 99285; G0378; G0482; J1815; J1940; J7050; P9021